=== PATIENT | female | born 1945 | race Caucasian/White ===

== ENCOUNTER → 2016-09-15 | Outpatient (CLI) | payer MEDICARE, BC ==
--- NOTE | 2016-09-15 17:20 | MR ---
EXAMINATION TYPE: MR lumbar spine wo con DATE OF EXAM: 09/15/2016 9:51 AM COMPARISON: 01/12/2016 HISTORY: 71-year-old female with low back pain, bilateral lower extremity radiculopathy, history of 3 surgeries, most recently in 2016. TECHNIQUE: Multiplanar, multisequence images of the lumbar spine were acquired. FINDINGS: There are postsurgical changes of L3-S1 posterior fusion with corresponding laminectomies. There is stable grade 1 anterolisthesis at the fused L4-L5 and L5-S1 levels. Intervertebral discs are degenerated, desiccated, narrowed, and diffusely bulging. As compared to 01/12/2016, fusion has been extended upward to include L3 and L4. There is extensive scar tissue formation along the posterior soft tissues with a 3.8 cm AP by 5.3 cm craniocaudal by 1.6 cm wide fluid collection along the posterior midline within the subcutaneous fat extending down to the superficial fascia. Possible cholelithiasis, axial T2 image 43 Vertebral body heights are preserved. At T12-L1, there is mild diffuse disc bulge without significant canal or foraminal stenosis. At L1-L2, there is mild diffuse disc bulge impressing on the ventral thecal sac but not causing signi ficant spinal canal stenosis. Changes result in minimal bilateral neuroforaminal narrowing. Not signi ficantly changed. At L2-L3, the new level above the fusion, there is diffuse disc bulge with a right intraforaminal com ponent. There is mild impression on the ventral thecal sac without significant spinal canal stenosis. Intraforaminal protrusion appears increased now with moderate right neuroforaminal stenosis and poss ible abutment of the exiting right L2 nerve root. At L3-L4, mild diffuse disc bulge with dorsal decompression of the thecal sac. There appears to be si milar mild to moderate right and mild left neuroforaminal stenosis. At L4-L5, is disc bulge with grade 1 anterolisthesis and dorsal decompression of the thecal sac. Ther e appears to be similar moderate right and [id number] left neuroforaminal stenosis. At L5-S1, there is grade 1 anterolisthesis with dorsal decompression of the thecal sac and diffuse di sc bulge. Unable to clearly evaluate the neuroforamina due to hardware artifact. Conus medullaris is normal. IMPRESSION: 1. The previous right-sided L5-S1 posterior lumbar fusion has been extended to include both sides now up to the L3 level with corresponding laminectomies. 2. There is a 5.3 cm fluid collection posteriorly in the subcutaneous fat extending down to the super ficial fascia that could represent a postoperative seroma. Other fluid collection including an absces s is not excluded and clinical correlation is recommended 3. At L2-L3, a right intraforaminal disc protrusion appears increased and this may impinge the exitin g right L2 nerve root. 4. Mild impression on the thecal sac at L2-L3 but no significant spinal canal stenosis. 5. Similar variable mild and moderate neuroforaminal stenoses in the mid and lower lumbar spine. 6. The L5-S1 neuroforamina are not adequately assessed due to metal artifact. Unable to exclude signi ficant neuroforaminal narrowing at this level.
== END | disposition home or self-care (01) ==
LOC: RADMRIMAIN 08:39
DX: M51.26 Other intervertebral disc displacement, lumbar region (principal); M99.73 Connective tissue and disc stenosis of intervertebral foramina of lumbar region; Z98.1 Arthrodesis status; Z98.890 Other specified postprocedural states
CPT/HCPCS: 72148

== ENCOUNTER → 2016-11-12 | Outpatient (CLI) | payer MEDICARE, BC ==
--- NOTE | 2016-11-12 19:32 | US ---
EXAMINATION TYPE: US venous doppler duplex LE LT DATE OF EXAM: 11/12/2016 7:01 PM COMPARISON: NONE CLINICAL HISTORY: Abnormal Coagulation Profile, D Dimer R79.1. Left leg pain SIDE PERFORMED: Left TECHNIQUE: The lower extremity deep venous system is examined utilizing real time linear array sonog gin with graded compression, doppler sonography and color-flow sonography. VESSELS IMAGED: External Iliac Vein (EIV) Common Femoral Vein Deep Femoral Vein Greater Saphenous Vein * Femoral Vein Popliteal Vein Small Saphenous Vein * Proximal Calf Veins (* superficial vessels) Left Leg: Negative for DVT IMPRESSION: Normal exam. No evidence of deep venous thrombosis in the left leg.
== END ==
LOC: RADUSMAIN 17:41
PROVIDERS: ATTEND Family Medicine
DX: R79.1 Abnormal coagulation profile (principal)
CPT/HCPCS: 36415; 85379

== ENCOUNTER → 2016-11-12 | Outpatient (CLI) | payer MEDICARE, BC | END | disposition home or self-care (01) | LOC: LABWHC1 16:05 | PROVIDERS: ATTEND Family Medicine | DX: R60.0 Localized edema (principal) | CPT/HCPCS: 36415; 85379 ==

== ENCOUNTER → 2017-03-22 | Outpatient (CLI) | payer MEDICARE, BC ==
--- NOTE | 2017-03-22 23:24 | MR ---
EXAMINATION TYPE: MR thoracic spine wo con DATE OF EXAM: 03/22/2017 COMPARISON: 01/12/2016 HISTORY: tspine pain Standard multiplanar, multisequence MRI departmental protocol Multiplanar, multisequence images of the thoracic spine were acquired. FINDINGS: Thoracic vertebra have fairly normal alignment. There is mild decreased signal and narrowin g of the thoracic disc spaces. There are moderate posterior spurs at C5-6 C6-7 with slight encroachme nt on the spinal canal. There is developmentally adequate spinal canal throughout most of the thoraci c spine. At T9-10 there is a small focus of increased signal within the posterior aspect of the thoracic spina l cord. I see no discrete mass. There is narrowing of the spinal canal at T10-11 with significant hyp ertrophic facet arthropathy and posterior endplate spur formation. There is resultant spinal stenosis . There is no compression fracture. There is no sign of thoracic paraspinal mass. I see no focal bone destruction. IMPRESSION: Mild spondylotic changes. There is posterior endplate spur formation and small disc herniation with f acet arthropathy at T10-11. There is resultant T10-11 bony spinal stenosis that show slight progressi on compared to old exam. There is focal increased signal in the cord at T9-10 that is unchanged and c onsistent with myelopathy. I see no underlying mass. Spondylosis in the cervical spine at C5-6 C6-7 without any significant spinal stenosis. Small posteri or disc bulging present at several levels of the midthoracic spine without encroachment on the spinal canal.
== END | disposition home or self-care (01) ==
LOC: RADMRIMAIN 17:29
PROVIDERS: ATTEND Pain Medicine Interventional Pain Medicine
DX: M48.04 Spinal stenosis, thoracic region (principal); M51.24 Other intervertebral disc displacement, thoracic region; M47.814 Spondylosis without myelopathy or radiculopathy, thoracic region; M46.84 Other specified inflammatory spondylopathies, thoracic region; M46.04 Spinal enthesopathy, thoracic region
CPT/HCPCS: 72146

== ENCOUNTER → 2017-05-03 | Outpatient (CLI) | payer MEDICARE, BC ==
--- NOTE | 2017-05-07 08:36 | MM ---
Reason for exam: screening (asymptomatic). Last mammogram was performed 1 year and 10 months ago. History: Patient is postmenopausal. Family history of breast cancer in maternal aunt at age 60. Took estrogen for 19 years beginning at age 42. Physical Findings: A clinical breast exam by your physician is recommended on an annual basis and results should be correlated with mammographic findings. MG 3D Screening Mammo W/Cad Bilateral CC and MLO view(s) were taken. Prior study comparison: June 28, 2015, bilateral MG 3d diag mammo w/cad JESSICA. May 25, 2014, bilateral MG screening mammo w CAD. The breast tissue is almost entirely fat. There is chronic nodularity in the right breast. No significant changes when compared with prior studies. ASSESSMENT: Negative, BI-RAD 1 RECOMMENDATION: Routine screening mammogram of both breasts in 1 year.
== END | disposition home or self-care (01) ==
LOC: RADMAMWWP 13:10
PROVIDERS: ATTEND Family Medicine
DX: Z12.31 Encounter for screening mammogram for malignant neoplasm of breast (principal)
CPT/HCPCS: 77063; G0202

== ENCOUNTER → 2017-06-27 | Outpatient (CLI) | payer MEDICARE, BC ==
--- NOTE | 2017-06-27 15:49 | MR ---
EXAMINATION TYPE: MR cervical spine wo con DATE OF EXAM: 06/27/2017 3:16 PM COMPARISON: NONE HISTORY: Neck pain Multiplanar MultiSpin echo imaging of the cervical spine was performed. Comparison: none C2-C3: No evidence for degenerative disc disease. No disc bulge/herniation or protrusion. No Canal stenosis. Foramina are patent bilaterally. C3-C4: No evidence for degenerative disc disease. No disc bulge/herniation or protrusion. No Canal stenosis. Foramina are patent bilaterally. C4-C5: No evidence for degenerative disc disease. No disc bulge/herniation or protrusion. No Canal stenosis. Foramina are patent bilaterally. C5-C6: Mild decreased signal and loss of height compatible disc desiccation. Mild posterior disc bulg e without herniation protrusion or central stenosis. Mild effacement ventral thecal sac. No evidence for cord contact. Bilateral foramina are patent. C6-C7: Moderate disc desiccation. Posterior disc bulge with encapsulating spur resulting in disc endp late complex. Mild effacement ventral thecal sac. No evidence for cord contact or central stenosis. M ild bilateral foraminal encroachment right greater than left. Ventral spondylosis. C7-T1: No evidence for degenerative disc disease. No disc bulge/herniation or protrusion. No Canal stenosis. Foramina are patent bilaterally. Cervical segments are intact. There is normal alignment. Cervical spinal cord is of normal signal. Craniovertebral junction relationships are within normal limits. IMPRESSION: 1. Degenerative disc disease at C5-6 and C6-7 with associated disc bulging in disc endplate complex a s noted.
== END ==
LOC: RADMRIMAIN 14:25
PROVIDERS: ATTEND Neurological Surgery
DX: M50.222 Other cervical disc displacement at C5-C6 level (principal); M50.322 Other cervical disc degeneration at C5-C6 level
CPT/HCPCS: 72141

== ENCOUNTER → 2017-08-08 | Outpatient (CLI) | payer MEDICARE, BC ==
--- NOTE | 2017-08-08 15:17 | XR ---
Thoracic spine HISTORY: Lead placement 3 views of the thoracic spine. there are leads, thoracic cord stimulator present at the midthoracic spine level, midline, T6-7. Ther e is a scoliosis, convex right. One of the 2 leads present is somewhat more caudal than the first dmitry e with its tip at the T7 level. Multilevel thoracic spondylosis is noted. Thoracic vertebral bodies s how preserved height and alignment. Bone mineralization is decreased. The heart is enlarged. No evide nt paraspinal mass. IMPRESSION: Thoracic cord stimulator as described.
== END | disposition home or self-care (01) ==
LOC: RADXRMAIN 14:45
PROVIDERS: ATTEND Pain Medicine Interventional Pain Medicine
DX: T82.129A Displacement of unspecified cardiac electronic device, initial encounter (principal)
CPT/HCPCS: 72070

== ENCOUNTER → 2018-06-11 | Outpatient (CLI) | payer MEDICARE ==
[2018-06-11 09:03] LABS: Basophils % (A) 1 %; Eosinophils # (A) 0.2 k/uL (0-0.7); Eosinophils % (A) 2 %; HCT 44.1 % (34.0-46.0); HGB 13.8 gm/dL (11.4-16.0); Lymphocytes # (A) 1.5 k/uL (1.0-4.8); Lymphocytes % (A) 21 %; MCH 28.9 pg (25.0-35.0); MCHC 31.3 g/dL (31.0-37.0); MCV 92.3 fL (80.0-100.0); Mean Platelet Volume 6.7; Monocytes # (A) 0.5 k/uL (0-1.0); Monocytes % (A) 6 %; Neutrophils # (A) 4.8 k/uL (1.3-7.7); Neutrophils % (A) 66 %; Platelet Count 238 k/uL (150-450); RBC 4.78 m/uL (3.80-5.40); RDW 13.5 % (11.5-15.5); WBC 7.2 k/uL (3.8-10.6)
[2018-06-11 16:21] LABS: Albumin 4.1 g/dL (3.80-4.90); Albumin/Globulin Ratio 1.52 (1.20-2.10); Anion Gap 6.7 mmol/L (4.00-12.00); Calcium 9.1 mg/dL (8.7-10.3); Carbon Dioxide 25.3 mmol/L (21.6-31.8); Globulin 2.7 g/dL (1.6-3.3); LDL Cholesterol,Calculated 140.4 mg/dL (0.0-131.0); Potassium 4.3 mmol/L (3.5-5.5); Total Bilirubin 0.4 mg/dL (0.2-1.2); Total Protein 6.8 g/dL (6.2-8.2); VLDL Calculation 25.6 mg/dL (5.00-40.00)
[2018-06-11 16:28] LABS: T4, Free (Free Thyroxine) 1.2 ng/dL (0.80-1.80)
== END | disposition home or self-care (01) ==
LOC: LABWHC1 08:06
PROVIDERS: ATTEND Family Medicine
DX: E03.9 Hypothyroidism, unspecified (principal); E78.5 Hyperlipidemia, unspecified; Z11.59 Encounter for screening for other viral diseases
CPT/HCPCS: 36415; 80053; 80061; 82550; 84439; 84443; 85025; 86803

== ENCOUNTER → 2018-09-02 | Outpatient (CLI) | payer MEDICARE ==
[2018-09-02 15:53] LABS: Basophils % (A) 0 %; Eosinophils # (A) 0.2 k/uL (0-0.7); Eosinophils % (A) 3 %; HCT 44.9 % (34.0-46.0); HGB 14.3 gm/dL (11.4-16.0); Lymphocytes # (A) 1.7 k/uL (1.0-4.8); Lymphocytes % (A) 20 %; MCH 29.3 pg (25.0-35.0); MCHC 31.9 g/dL (31.0-37.0); MCV 91.6 fL (80.0-100.0); Mean Platelet Volume 7.8; Monocytes # (A) 0.5 k/uL (0-1.0); Monocytes % (A) 6 %; Neutrophils % (A) 69 %; Platelet Count 248 k/uL (150-450); RBC 4.89 m/uL (3.80-5.40); WBC 8.7 k/uL (3.8-10.6)
[2018-09-02 16:01] LABS: Appearance,Urine Clear (Clear); Bacteria,Urine Rare /hpf; Bilirubin,Urine Negative (Negative); Blood,Urine Negative (Negative); Color,Urine Light Yellow; Glucose,Urine (UA) Negative (Negative); Ketones,Urine 1+ (Negative); Leukocyte Esterase,Urine Small (Negative); Nitrite,Urine Negative (Negative); PH, Urine 5.5 (5.0-8.0); Protein,Urine Negative (Negative); RBC,Urine 1 /hpf (0-5); Specific Gravity,Urine 1.011 (1.001-1.035); Squamous Epithelial Cell,Urine <1 /hpf (0-4); Urobilinogen,Urine <2.0 mg/dL (<2.0); WBC,Urine 6 /hpf (0-5)
[2018-09-02 17:36] LABS: Erythrocyte Sedimentation Rate 16 mm/hr (0-20)
[2018-09-03 00:32] LABS: Cyclic Citrullinated Pep IgG NEGATIVE (NEGATIVE)
[2018-09-03 01:06] LABS: ALT 26 U/L (8-44); AST 30 U/L (13-35); Albumin/Globulin Ratio 1.52 (1.60-3.17); Alkaline Phosphatase 64 U/L (41-126); Bilirubin, Conjugated <0.20 mg/dL (0.20-0.40); C Reactive Protein <0.4 mg/dL (0.0-0.8); Calcium 9.5 mg/dL (8.7-10.3); Carbon Dioxide 22.6 mmol/L (21.6-31.8); Chloride 103 mmol/L (96-109); Creatine Kinase 102 U/L (26-186); Globulin 2.9 g/dL (1.6-3.3); Glucose 86 mg/dL (70-110); LDH 273 U/L (120-246); Phosphorus 2.4 mg/dL (2.4-5.1); Potassium 3.8 mmol/L (3.5-5.5); Sodium 137 mmol/L (135-145); Total Bilirubin 0.4 mg/dL (0.3-1.2); Total Protein 7.3 g/dL (6.2-8.2); Uric Acid 6.1 mg/dL (2.9-7.7)
[2018-09-03 01:23] LABS: Protein, Total 7.3 g/dL (6.2-8.2); Rheumatoid Factor 10 IU/mL (0-15); Streptolysin O Ab(ASO) 138 IU/mL (0-200)
[2018-09-03 01:32] LABS: Vitamin D 25 Hydroxy 30.3 ng/mL (30.0-100.0)
[2018-09-03 05:41] LABS: Hemoglobin A1C 5.8 % (4.0-6.0)
[2018-09-03 10:28] LABS: Albumin 4.07 g/dL (3.80-4.90); Gamma Globulin 1.36 g/dL (0.70-1.50)
[2018-09-03 12:39] LABS: HLA B27 NEGATIVE
[2018-09-03 14:08] LABS: Angiotensin-1 Converting Enz. 4 U/L (8-52)
[2018-09-03 14:34] LABS: Hepatits C Virus RNA Not detected (Not detected); Hepatits C Virus RNA, Quant <12 IU/mL (<12); LOG HCV IU/mL <1.08 (<1.08)
[2018-09-03 16:24] LABS: Vitamin D, 1, 25-Dihydroxy 37 pg/mL (20 - 79)
[2018-09-04 07:04] LABS: Vit B1(Thiamine) 68 ug/L (38-122)
[2018-09-05 09:54] LABS: Lyme IgG/IgM 0.1 Index
== END | disposition home or self-care (01) ==
LOC: LABWHC1 14:25
PROVIDERS: ATTEND Physical Medicine & Rehabilitation
DX: M51.16 Intervertebral disc disorders with radiculopathy, lumbar region (principal); M47.816 Spondylosis without myelopathy or radiculopathy, lumbar region; M54.5 Low back pain; R26.89 Other abnormalities of gait and mobility; G60.3 Idiopathic progressive neuropathy; M96.1 Postlaminectomy syndrome, not elsewhere classified; Z98.1 Arthrodesis status; Z68.41 Body mass index [BMI] 40.0-44.9, adult; M79.18 Myalgia, other site; M81.0 Age-related osteoporosis without current pathological fracture; Z86.2 Personal history of diseases of the blood and blood-forming organs and certain disorders involving the immune mechanism
CPT/HCPCS: 36415; 80053; 81001; 82164; 82248; 82306; 82310; 82550; 82553; 82607; 82652; 83036; 83516; 83520; 83615; 83970; 84100; 84165; 84207; 84425; 84550; 85025; 85652; 86038; 86060; 86140; 86200; 86235; 86431; 86618; 86780; 86812; 87522

== ENCOUNTER → 2020-02-01 | Outpatient (CLI) | payer MEDICARE ==
--- NOTE | 2020-02-02 10:10 | MM ---
Reason for exam: screening (asymptomatic). Last mammogram was performed 2 years and 9 months ago. History: Patient is postmenopausal. Family history of breast cancer in maternal aunt at age 60. Took estrogen for 19 years beginning at age 42. Physical Findings: A clinical breast exam by your physician is recommended on an annual basis and results should be correlated with mammographic findings. MG 3D Screening Mammo W/Cad Bilateral CC and MLO view(s) were taken. Prior study comparison: May 03, 2017, bilateral MG 3d screening mammo w/cad. June 28, 2015, bilateral MG 3d diag mammo w/cad JESSICA. There are scattered fibroglandular densities. Stable benign calcifications. There is no discrete abnormality. No significant changes when compared with prior studies. ASSESSMENT: Benign, BI-RAD 2 RECOMMENDATION: Routine screening mammogram of both breasts in 1 year.
== END | disposition home or self-care (01) ==
LOC: RADMAMWWP 07:58
PROVIDERS: ATTEND Family Medicine
DX: Z12.31 Encounter for screening mammogram for malignant neoplasm of breast (principal)
CPT/HCPCS: 77063; 77067

== ENCOUNTER 2020-06-18 09:26 | Inpatient (IN) | payer MEDICARE ==
[2020-06-18] MEDS ORDERED: ACETAMINOPHEN TAB 500 MG TAB PO STA (09:45)
[2020-06-18] MEDS ORDERED: ONDANSETRON 4 MG/2 ML VIAL IVP STA (09:46)
[2020-06-18] MEDS ORDERED: SODIUM CHLORIDE 0.9% 1,000 ML IV STA (09:46)
[2020-06-18] MEDS ORDERED: IBUPROFEN 600 MG TAB PO STA (09:46)
[2020-06-18 10:17] LABS: Basophils # (A) 0.2 k/uL (0-0.2); Basophils % (A) 2 %; Eosinophils # (A) 0.1 k/uL (0-0.7); Eosinophils % (A) 1 %; HCT 41.1 % (34.0-46.0); HGB 14.1 gm/dL (11.4-16.0); Lymphocytes # (A) 0.7 k/uL (1.0-4.8); Lymphocytes % (A) 9 %; MCHC 34.3 g/dL (31.0-37.0); MCV 87.5 fL (80.0-100.0); Mean Platelet Volume 7.6; Monocytes # (A) 0.6 k/uL (0-1.0); Monocytes % (A) 9 %; Neutrophils # (A) 5.6 k/uL (1.3-7.7); Neutrophils % (A) 77 %; Platelet Count 169 k/uL (150-450); RDW 12.6 % (11.5-15.5); WBC 7.3 k/uL (3.8-10.6)
--- NOTE | 2020-06-18 10:23 | ED ---
General Adult HPI - General Chief complaint: Recheck/Abnormal Lab/Rx Stated complaint: Covid + Time Seen by Provider: 06/18/20 09:30 Source: patient, RN notes reviewed, old records reviewed Mode of arrival: wheelchair Limitations: no limitations - History of Present Illness Initial comments: This is a 75-year-old female presents to the emergency department stating that she was tested positive for cold on Saturday. Patient states that since she's not been able to eat or drink much and she is somewhat short of breath as well. Patient also complains he said diarrhea every day. Patient also states she's lost her sense of smell and taste. Patient denies any shortness of breath per patient denies any fever lately. Patient does complain of some body aches. Patient denies any abdominal pain but states she has been vomiting and she states last time she vomited was an hour and half ago. She denies any swelling to legs or calf tenderness. - Related Data Allergies Allergy/AdvReac Type Severity Reaction Status Date / Time Penicillins Allergy Unknown Verified 06/18/20 09:33 Sulfa (Sulfonamide Allergy Unknown Verified 06/18/20 09:33 Antibiotics) Review of Systems ROS Statement: Those systems with pertinent positive or pertinent negative responses have been documented in the HPI. ROS Other: All systems not noted in ROS Statement are negative. Past Medical History Past Medical History: Hypertension Additional Past Medical History / Comment(s): chronic back pain History of Any Multi-Drug Resistant Organisms: None Reported Past Surgical History: Back Surgery Past Psychological History: No Psychological Hx Reported Smoking Status: Former smoker Past Alcohol Use History: None Reported Past Drug Use History: None Reported General Exam - General Exam Comments Initial Comments: GENERAL: Patient is well-developed and well-nourished. Patient is nontoxic and well- hydrated and is in mild distress. ENT: Neck is soft and supple. No significant lymphadenopathy is noted. Oropharynx is clear. Moist mucous membranes. Neck has full range of motion without eliciting any pain. EYES: The sclera were anicteric and conjunctiva were pink and moist. Extraocular movements were intact and pupils were equal round and reactive to light. Eyelids were unremarkable. PULMONARY: Unlabored respirations. Good breath sounds bilaterally. No audible rales rhonchi or wheezing was noted. CARDIOVASCULAR: There is a regular rate and rhythm without any murmurs gallops or rubs. ABDOMEN: Soft and nontender with normal bowel sounds. SKIN: Skin is clear with no lesions or rashes and otherwise unremarkable. NEUROLOGIC: Patient is alert and oriented x3. Cranial nerves II through XII are grossly intact. Motor and sensory are also intact. Normal speech, volume and content. Symmetrical smile. MUSCULOSKELETAL: Normal extremities with adequate strength and full range of motion. LYMPHATICS: No significant lymphadenopathy is noted PSYCHIATRIC: Normal psychiatric evaluation. Limitations: no limitations Course Vital Signs 06/18/20 06/18/20 09:29 09:46 Temperature 98.3 F 99.9 F H Pulse Rate 104 H Respiratory 18 Rate Blood Pressure 164/83 O2 Sat by Pulse 97 Oximetry Medical Decision Making - Medical Decision Making EKG shows normal sinus rhythm 89 bpm MO interval is 114 QRS is 68 QT interval 360 QTC is 447. Chest x-ray showed: Pneumonia. Computed tomography scan showed no PE but did show extensive groundglass infiltrates. This is consistent with Coban pneumonia. I spoke with the patient and she wanted to be admitted. I started the patient on Decadron. I consulted pulmonary and I spoke with Dr. Clark he agreed to admit the patient I wrote admitting orders. - Lab Data Result diagrams: 06/18/20 10:09 06/18/20 10:09 Lab Results 06/18/20 06/18/20 06/18/20 Range/Units 10:09 10:09 10:09 WBC 7.3 (3.8-10.6) k/uL RBC 4.70 (3.80-5.40) m/uL Hgb 14.1 (11.4-16.0) gm/dL Hct 41.1 (34.0-46.0) % MCV 87.5 (80.0-100.0) fL MCH 30.0 (25.0-35.0) pg MCHC 34.3 (31.0-37.0) g/dL RDW 12.6 (11.5-15.5) % Plt Count 169 (150-450) k/uL MPV 7.6 Neutrophils % 77 % Lymphocytes % 9 % Monocytes % 9 % Eosinophils % 1 % Basophils % 2 % Neutrophils # 5.6 (1.3-7.7) k/uL Lymphocytes # 0.7 L (1.0-4.8) k/uL Monocytes # 0.6 (0-1.0) k/uL Eosinophils # 0.1 (0-0.7) k/uL Basophils # 0.2 (0-0.2) k/uL PT 10.4 (9.0-12.0) sec INR 1.0 (<1.2) APTT 26.0 (22.0-30.0) sec D-Dimer 1.31 H (<0.60) mg/L FEU Sodium 138 (137-145) mmol/L Potassium 3.9 (3.5-5.1) mmol/L Chloride 108 H (98-107) mmol/L Carbon Dioxide 21 L (22-30) mmol/L Anion Gap 9 mmol/L BUN 13 (7-17) mg/dL Creatinine 0.61 (0.52-1.04) mg/dL Est GFR (CKD-EPI)AfAm >90 (>60 ml/min/1.73 sqM) Est GFR (CKD-EPI)NonAf >90 (>60 ml/min/1.73 sqM) Glucose 130 H (74-99) mg/dL Plasma Lactic Acid Bucky (0.7-2.0) mmol/L Calcium 8.9 (8.4-10.2) mg/dL Magnesium 1.7 (1.6-2.3) mg/dL Total Bilirubin 0.7 (0.2-1.3) mg/dL AST 53 H (14-36) U/L ALT 26 (4-34) U/L Alkaline Phosphatase 87 (38-126) U/L Lactate Dehydrogenase 782 H (313-618) U/L C-Reactive Protein 35.0 H (<10.0) mg/L Total Protein 7.2 (6.3-8.2) g/dL Albumin 3.7 (3.5-5.0) g/dL Coronavirus (PCR) (Not Detectd) 06/18/20 06/18/20 Range/Units 10:09 10:10 WBC (3.8-10.6) k/uL RBC (3.80-5.40) m/uL Hgb (11.4-16.0) gm/dL Hct (34.0-46.0) % MCV (80.0-100.0) fL MCH (25.0-35.0) pg MCHC (31.0-37.0) g/dL RDW (11.5-15.5) % Plt Count (150-450) k/uL MPV Neutrophils % % Lymphocytes % % Monocytes % % Eosinophils % % Basophils % % Neutrophils # (1.3-7.7) k/uL Lymphocytes # (1.0-4.8) k/uL Monocytes # (0-1.0) k/uL Eosinophils # (0-0.7) k/uL Basophils # (0-0.2) k/uL PT (9.0-12.0) sec INR (<1.2) APTT (22.0-30.0) sec D-Dimer (<0.60) mg/L FEU Sodium (137-145) mmol/L Potassium (3.5-5.1) mmol/L Chloride (98-107) mmol/L Carbon Dioxide (22-30) mmol/L Anion Gap mmol/L BUN (7-17) mg/dL Creatinine (0.52-1.04) mg/dL Est GFR (CKD-EPI)AfAm (>60 ml/min/1.73 sqM) Est GFR (CKD-EPI)NonAf (>60 ml/min/1.73 sqM) Glucose (74-99) mg/dL Plasma Lactic Acid Bucky 1.3 (0.7-2.0) mmol/L Calcium (8.4-10.2) mg/dL Magnesium (1.6-2.3) mg/dL Total Bilirubin (0.2-1.3) mg/dL AST (14-36) U/L ALT (4-34) U/L Alkaline Phosphatase (38-126) U/L Lactate Dehydrogenase (313-618) U/L C-Reactive Protein (<10.0) mg/L Total Protein (6.3-8.2) g/dL Albumin (3.5-5.0) g/dL Coronavirus (PCR) Detected A (Not Detectd) Critical Care Time Critical Care Time: Yes Total Critical Care Time: 35 Disposition Clinical Impression: Pneumonia due to COVID-19 virus Disposition: ADMITTED IP TO THIS [facility] Referrals: Damian Sherman MD [Primary Care Provider] - 1-2 days Time of Disposition: 12:17
[2020-06-18 10:31] LABS: ALT 26 U/L (4-34); AST 53 U/L (14-36); African American GFR (CKD) >90 (>60 ml/min/1.73 sqM); Albumin 3.7 g/dL (3.5-5.0); Alkaline Phosphatase 87 U/L (38-126); Anion Gap 9 mmol/L; Blood Urea Nitrogen 13 mg/dL (7-17); Calcium 8.9 mg/dL (8.4-10.2); Carbon Dioxide 21 mmol/L (22-30); Chloride 108 mmol/L (98-107); Glucose 130 mg/dL (74-99); LDH 782 U/L (313-618); Magnesium 1.7 mg/dL (1.6-2.3); Non-African American GFR(CKD) >90 (>60 ml/min/1.73 sqM); Potassium 3.9 mmol/L (3.5-5.1); Sodium 138 mmol/L (137-145); Total Bilirubin 0.7 mg/dL (0.2-1.3); Total Protein 7.2 g/dL (6.3-8.2)
[2020-06-18 10:32] LABS: Prothrombin Time 10.4 sec (9.0-12.0)
--- NOTE | 2020-06-18 10:36 | XR ---
EXAMINATION TYPE: XR chest 1V portable DATE OF EXAM: 06/18/2020 COMPARISON: NONE HISTORY: Shortness of breath TECHNIQUE: Single frontal view of the chest is obtained. FINDINGS: There is no focal air space opacity, pleural effusion, or pneumothorax seen. The cardiac silhouette size is within normal limits. The osseous structures are intact. IMPRESSION: No acute process.
[2020-06-18 10:41] LABS: D-Dimer 1.31 mg/L FEU (<0.60)
[2020-06-18] MEDS ORDERED: HYDROmorphone 0.5 MG/0.5 ML SYRINGE IVP STA (11:02)
--- NOTE | 2020-06-18 11:44 | CT ---
EXAMINATION TYPE: CT chest angio for PE DATE OF EXAM: 06/18/2020 COMPARISON: None HISTORY: Elevated D dimer CT DLP: 448.6 mGycm Automated exposure control for dose reduction was used. CONTRAST: CT Chest for pulmonary embolism performed with with IV Contrast, patient injected with 100 mL of Isov ue 370. FINDINGS: LUNGS: There are bilateral groundglass infiltrates greater within the periphery of the lungs suggesti ve of pneumonitis or pneumonia. No pleural effusion or pneumothorax. No sizable pulmonary nodule. MEDIASTINUM: There is satisfactory enhancement of the pulmonary artery and its branches, there is no CT evidence for pulmonary embolism. There are no greater than 1 cm hilar or mediastinal lymph nodes. No pericardial effusion is seen. There appears to be artifact within the right anterior mediastin um. OTHER: Hypertrophic and degenerative change of the spine. Suggestion of a stimulator device posterio r to the thoracic spine. Bilateral nodularity adrenal glands are nonspecific. IMPRESSION: 1. Bilateral diffuse groundglass changes compatible with pneumonia or pneumonitis including covid pne umonia. 2. No diagnostic evidence of pulmonary embolism.
[2020-06-18] MEDS ORDERED: dexAMETHasone 2 MG TAB PO STA (12:07)
[2020-06-18] MEDS: PREGABALIN 100 MG CAP PO SCH ×2 (15:28→21:00)
[2020-06-18] MEDS: atenoloL 25 MG TAB PO SCH (15:28)
[2020-06-18] MEDS: FAMOTIDINE 20 MG TAB PO SCH (15:28)
[2020-06-18] MEDS: lisinopriL 20 MG TAB PO SCH (17:37)
[2020-06-18 18:15] LABS: Ferritin 267.1 ng/mL (10.0-291.0)
[2020-06-18] MEDS ORDERED: tiZANidine 4 MG TAB PO SCH (21:00)
[2020-06-18] MEDS ORDERED: ASPIRIN 81 MG PO SCH (21:00)
[2020-06-19 04:19] VITALS: RESP 16
[2020-06-19] MEDS ORDERED: LEVOTHYROXINE 75 MCG TAB PO SCH (06:30)
[2020-06-19] MEDS ORDERED: dexAMETHasone 2 MG TAB PO SCH (09:00)
[2020-06-19] MEDS: PREGABALIN 100 MG CAP PO SCH (09:21)
[2020-06-19] MEDS: FAMOTIDINE 20 MG TAB PO SCH (09:21)
[2020-06-19] MEDS: atenoloL 25 MG TAB PO SCH (09:21)
[2020-06-19] MEDS: lisinopriL 20 MG TAB PO SCH (11:19)
[2020-06-19 11:56] VITALS: BP 105/66; PULSE 73; TEMP 97.9
--- NOTE | 2020-06-19 12:38 | P.CNPUL ---
History of Present Illness Consult date: 06/19/20 Requesting physician: Fransico Clark Reason for consult: dyspnea Chief complaint: Poor appetite, shortness of breath History of present illness: This is a very pleasant 75-year-old female patient with a known history of hypertension, chronic back pain with multiple reveals back surgeries, former smoker. She presented to the emergency room yesterday with complaints of ongoing issues with poor appetite, poor oral intake, muscle aches, shortness of breath. Her symptoms started approximately 10 days ago. She tested positive for CoVID 19 on 06/13/2020. Her and son are also positive. Chest x-ray reveals no acute pulmonary process. CT angiogram ruled out pulmonary embolism. There is bilateral diffuse groundglass changes compatible with pneumonitis secondary to CoVID 19. White count 7.3. Hemoglobin 14.1. Lymphocytes 0.7. D- dimer 1.31. Sodium 138. Potassium 3.9. Creatinine 0.61. Pro-calcitonin 0.05. LDH 782. C-reactive protein 35. She is seen today in consultation on the regular medical floor. She is currently sitting up in a chair at the bedside. Awake and alert in no acute distress. Feeling quite a bit better today compared to yesterday. Tolerating a diet. Maintaining good O2 saturations in the mid 90s on room air. She's been afebrile. Hemodynamically stable. She's been initiated on dexamethasone. Review of Systems REVIEW OF SYSTEMS: CONSTITUTIONAL: Weakness, poor appetite. Denies any recent significant weight loss or weight gain. EYES: Denies change in vision. EARS, NOSE, MOUTH, THROAT: Denies headaches, denies sore throat. CARDIOVASCULAR: Denies chest pain, palpitations or syncopal episodes. RESPIRATORY: Positive for shortness of breath, cough, congestion no hemoptysis. GASTROINTESTINAL: Denies change in appetite, denies abdominal pain GENITOURINARY: Denies hematuria, denies infections. MUSKULOSKELETAL: Denies pain, denies swelling. INTEGUMENTARY: Denies rash, denies eczema. NEUROLOGICAL: Denies recent memory loss, no recent seizure activity. PSYCHIATRIC: Denies anxiety, denies depression. HEMATOLOGIC/LYMPHATIC: Denies anemia, denies enlarged lymph nodes. Past Medical History Past Medical History: Hypertension, Osteoarthritis (OA) Additional Past Medical History / Comment(s): chronic back pain, Hashimotos Thyroiditis History of Any Multi-Drug Resistant Organisms: None Reported Past Surgical History: Back Surgery Smoking Status: Former smoker - Past Family History Mother Family Medical History: No Reported History Medications and Allergies Home Medications Medication Instructions Recorded Confirmed Type Aspirin EC [Ecotrin Low Dose] 81 mg PO HS 06/18/20 06/18/20 History Famotidine [Pepcid] 40 mg PO DAILY 06/18/20 06/18/20 History Fexofenadine HCl [Maura Allergy] 180 mg PO HS 06/18/20 06/18/20 History Furosemide [Lasix] 20 mg PO DAILY 06/18/20 06/18/20 History Levothyroxine Sodium [Synthroid] 75 mcg PO DAILY 06/18/20 06/18/20 History Pregabalin [Lyrica] 100 mg PO TID 06/18/20 06/18/20 History atenoloL [Atenolol] 25 mg PO DAILY 06/18/20 06/18/20 History ramipriL [Ramipril] 10 mg PO BID 06/18/20 06/18/20 History tiZANidine HCL [Zanaflex] 2 mg PO HS 06/18/20 06/18/20 History Allergies Allergy/AdvReac Type Severity Reaction Status Date / Time Penicillins Allergy Unknown Verified 06/18/20 12:44 Sulfa (Sulfonamide Allergy Unknown Verified 06/18/20 12:44 Antibiotics) Physical Exam Vitals: Vital Signs Temp Pulse Pulse Resp BP BP Pulse Ox 06/19/20 11:00 97.9 F 73 16 105/66 95 06/19/20 10:50 105/69 06/19/20 09:18 69 110/71 06/19/20 05:21 103/70 06/19/20 04:18 97.4 F L 71 16 90/59 96 06/18/20 21:10 98 F 70 18 116/73 96 06/18/20 20:05 18 06/18/20 19:42 112/72 06/18/20 17:26 97.9 F 71 17 159/103 96 06/18/20 13:56 158/95 06/18/20 13:51 97.3 F L 72 17 168/102 95 06/18/20 13:02 98.9 F 92 18 126/76 98 Intake and Output 06/18/20 06/19/20 06/19/20 22:59 06:59 14:59 Intake Total 600 Balance 600 Intake: Oral 600 Other: Voiding Method Toilet Toilet # Voids 1 1 GENERAL EXAM: Alert, active, very pleasant 75-year-old female patient, on room air, comfortable in no apparent distress. HEAD: Normocephalic. EYES: Normal reaction of pupils, equal size. NOSE: Clear with pink turbinates. THROAT: No erythema or exudates. NECK: No masses, no JVD. CHEST: No chest wall deformity. LUNGS: Equal air entry with few scattered crackles in the bases. CVS: S1 and S2 normal with no audible murmur, regular rhythm. ABDOMEN: No hepatosplenomegaly, normal bowel sounds, no guarding or rigidity. SPINE: No scoliosis or deformity SKIN: No rashes CENTRAL NERVOUS SYSTEM: No focal deficits, tone is normal in all 4 extremities. EXTREMITIES: There is no peripheral edema. No clubbing, no cyanosis. Peripheral pulses are intact. Results - Laboratory Findings CBC and BMP: 06/18/20 10:09 06/18/20 10:09 PT/INR, D-dimer PT 10.4 sec (9.0-12.0) 06/18/20 10:09 INR 1.0 (<1.2) 06/18/20 10:09 D-Dimer 1.31 mg/L FEU (<0.60) H 06/18/20 10:09 Abnormal lab findings: Abnormal Labs 06/18/20 06/18/20 06/18/20 10:09 10:09 10:09 Lymphocytes # 0.7 L D-Dimer 1.31 H Chloride 108 H Carbon Dioxide 21 L Glucose 130 H AST 53 H Lactate Dehydrogenase 782 H C-Reactive Protein 35.0 H Coronavirus (PCR) 06/18/20 10:10 Lymphocytes # D-Dimer Chloride Carbon Dioxide Glucose AST Lactate Dehydrogenase C-Reactive Protein Coronavirus (PCR) Detected A - Diagnostic Findings Chest x-ray: image reviewed CT scan - chest: image reviewed Assessment and Plan Assessment: 1 Generalized weakness, fatigue, poor appetite secondary to acute CoVID 19 infection 2 Dyspnea secondary to above, on room air 3 Hypothyroidism 4 Hypertension 5 Chronic back pain with multiple previous surgeries Plan: The patient was seen and evaluated by Dr. Kadi Chest x-ray, CAT scan of labs reviewed She is currently on room air and anxious to go home Continue dexamethasone 10 days Follow up closely with her PCP Home once cleared medically I, the cosigning physician, performed a history & physical examination of the patient. Lungs sounds faint basilar crackles. Maintaining good O2 saturations in the 90s on room air. I discussed the assessment and plan of care with my nurse practitioner, Temi Cody. I attest to the above consultation as dictated by her. Time with Patient: Greater than 30
--- NOTE | 2020-06-19 23:15 | P.HPIM ---
History of Present Illness H&P Date: 06/19/20 Chief Complaint: Loss of taste and smell. History of presenting complaint: This is a very pleasant 72. Patient of Dr. Damian Sherman. Chronic stable medical conditions include hypertension, hypothyroid, chronic low back pain and this had multiple surgeries. Patient's has been diagnosed with COVID and also her [place] Patient was diagnosed with COVID on Saturday. Patient for 1 days loss of taste and smell. No fever no chills. Had some achiness in the muscles. No headache. Slight diarrhea. Presented to the ER. No hypoxia. Review of systems: GEN.: None EYES: None HEENT: As above NECK: None RESPIRATORY: None CARDIOVASCULAR: None GASTROINTESTINAL: None GENITOURINARY: As above MUSCULOSKELETAL: None LYMPHATICS: None HEMATOLOGICAL: None PSYCHIATRY: None NEUROLOGICAL: None Past medical history to include: Hypertension, hypothyroid, chronic low back pain with multiple surgeries, Gus's thyroiditis Social history: Does not smoke or drink alcohol. . Family history: Reviewed, noncontributory to presentation Physical examination: VITAL SIGNS: 98.3, 104, 18, 164/83, 97% room air-upon presentation GENERAL: [BMI 38.8, sitting up, comfortable. EYES: Pupils equal. Conjunctiva normal. HEENT: External appearance of nose and ears normal, oral cavity grossly normal. NECK: JVD not raised; masses not palpable. HEART: First and second heart sounds are normal; no edema. LUNGS: Respiratory rate normal; clear to auscultation. ABDOMEN: Soft, nontender, liver spleen not palpable, no masses palpable. PSYCH: Alert and oriented x3; mood and affect normal. NEUROLOGICAL: Cranial nerves grossly intact; no facial asymmetry, power and sensation grossly intact. LYMPHATICS: No lymph nodes palpable in the axilla and neck INVESTIGATIONS, reviewed in the clinical context: White count 7.3 hemoglobin 14.1 decreased lymphocytes 0.7 D-dimer 1.31 potassium 3.9 creatinine 0.61 CRP 35 Pro-calcitonin 0.05 Coronavirus [PCR] detected EKG tracing personally reviewed by me-normal sinus rhythm Computed tomography scan of the chest-bilateral diffuse groundglass changes Chest x-ray film personally reviewed by me-some infiltrates Assessment: -COVID 19 pneumonia, mild with a good pulse ox -Hypothyroid -Essential hypertension -Primary low back pain with multiple surgeries -Obesity BMI 38.8 Plan: Home medications resumed. Patient started on supplements including vitamin C vitamin D absent. Pulmonary did recommend dexamethasone hence is being given. Otherwise patient's pulse ox is rather good. This was discussed with the patient. Past Medical History Past Medical History: Hypertension, Osteoarthritis (OA) Additional Past Medical History / Comment(s): chronic back pain, Hashimotos Thyroiditis History of Any Multi-Drug Resistant Organisms: None Reported Past Surgical History: Back Surgery Smoking Status: Former smoker - Past Family History Mother Family Medical History: No Reported History Medications and Allergies Home Medications Medication Instructions Recorded Confirmed Type Aspirin EC [Ecotrin Low Dose] 81 mg PO HS 06/18/20 06/18/20 History Famotidine [Pepcid] 40 mg PO DAILY 06/18/20 06/18/20 History Fexofenadine HCl [Maura Allergy] 180 mg PO HS 06/18/20 06/18/20 History Furosemide [Lasix] 20 mg PO DAILY 06/18/20 06/18/20 History Levothyroxine Sodium [Synthroid] 75 mcg PO DAILY 06/18/20 06/18/20 History Pregabalin [Lyrica] 100 mg PO TID 06/18/20 06/18/20 History atenoloL [Atenolol] 25 mg PO DAILY 06/18/20 06/18/20 History ramipriL [Ramipril] 10 mg PO BID 06/18/20 06/18/20 History tiZANidine HCL [Zanaflex] 2 mg PO HS 06/18/20 06/18/20 History Ascorbic Acid [Vitamin C] 500 mg PO DAILY #30 tab.chew 06/19/20 Rx Cholecalciferol [Vitamin D3] 400 unit PO DAILY@1200 #30 tablet 06/19/20 Rx Famotidine [Pepcid] 20 mg PO BID #60 tablet 06/19/20 Rx dexAMETHasone [Hexadrol] 6 mg PO DAILY #21 tab 06/19/20 Rx Allergies Allergy/AdvReac Type Severity Reaction Status Date / Time Penicillins Allergy Unknown Verified 06/18/20 12:44 Sulfa (Sulfonamide Allergy Unknown Verified 06/18/20 12:44 Antibiotics) Physical Exam Vitals: Vital Signs Temp Pulse Pulse Resp BP BP Pulse Ox 06/19/20 11:00 97.9 F 73 16 105/66 95 06/19/20 10:50 105/69 06/19/20 09:18 69 110/71 06/19/20 05:21 103/70 06/19/20 04:18 97.4 F L 71 16 90/59 96 06/18/20 21:10 98 F 70 18 116/73 96 06/18/20 20:05 18 06/18/20 19:42 112/72 06/18/20 17:26 97.9 F 71 17 159/103 96 06/18/20 13:56 158/95 06/18/20 13:51 97.3 F L 72 17 168/102 95 06/18/20 13:02 98.9 F 92 18 126/76 98 Intake and Output 06/18/20 06/19/20 06/19/20 22:59 06:59 14:59 Intake Total 600 Balance 600 Intake: Oral 600 Other: Voiding Method Toilet Toilet # Voids 1 1 Results CBC & Chem 7: 06/18/20 10:09 06/18/20 10:09 Thrombosis Risk Factor Assmnt - Choose All That Apply Any of the Below Risk Factors Present?: Yes Each Factor Represents 1 point: Swollen legs (current) Each Risk Factor Represents 2 Points: Age 61-74 years Each Risk Factor Represents 3 Points: Positive Factor V Leiden Thrombosis Risk Factor Assessment Total Risk Factor Score: 6 Thrombosis Risk Factor Assessment Level: High Risk
--- NOTE | 2020-06-19 23:20 | P.DS ---
Providers Date of admission: 06/18/20 12:18 Expected date of discharge: 06/19/20 Attending physician: Fransico Clark Consults: 06/18/20 12:18 Consult Physician Urgent Consulting Provider: Santiago Wallis Consult Reason/Comments: COVID pneumonia Do you want consulting provider notified?: Yes Primary care physician: Damian Sherman [facility] Course: Chief Complaint: Loss of taste and smell. History of presenting complaint: This is a very pleasant 72. Patient of Dr[address] Damian Sherman. Chronic stable medical conditions include hypertension, hypothyroid, chronic low back pain and this had multiple surgeries. Patient's has been diagnosed with COVID and also her [place] who [place] Patient was diagnosed with COVID on Saturday. Patient for 1 days loss of taste and smell. No fever no chills. Had some achiness in the muscles. No headache. Slight diarrhea. Presented to the ER. No hypoxia. Patient is a good pulse ox. No real indication for steroids. Seen by pulmonary. We'll felt he may benefit from steroids. Discussed with the patient. Patient stable for discharge. Quarantine instructions given. To return if symptoms were to get worse. Consultation: Dr. Wallis from pulmonary Past medical history to include: Hypertension, hypothyroid, chronic low back pain with multiple surgeries, Gus's thyroiditis Social history: Does not smoke or drink alcohol. . Family history: Reviewed, noncontributory to presentation Physical examination: VITAL SIGNS: 98.3, 104, 18, 164/83, 97% room air-upon presentation GENERAL: [BMI 38.8, sitting up, comfortable. EYES: Pupils equal. Conjunctiva normal. HEENT: External appearance of nose and ears normal, oral cavity grossly normal. NECK: JVD not raised; masses not palpable. HEART: First and second heart sounds are normal; no edema. LUNGS: Respiratory rate normal; clear to auscultation. ABDOMEN: Soft, nontender, liver spleen not palpable, no masses palpable. PSYCH: Alert and oriented x3; mood and affect normal. NEUROLOGICAL: Cranial nerves grossly intact; no facial asymmetry, power and sensation grossly intact. LYMPHATICS: No lymph nodes palpable in the axilla and neck INVESTIGATIONS, reviewed in the clinical context: White count 7.3 hemoglobin 14.1 decreased lymphocytes 0.7 D-dimer 1.31 potassium 3.9 creatinine 0.61 CRP 35 Pro-calcitonin 0.05 Coronavirus [PCR] detected EKG tracing personally reviewed by me-normal sinus rhythm Computed tomography scan of the chest-bilateral diffuse groundglass changes Chest x-ray film personally reviewed by me-some infiltrates Assessment: -COVID 19 pneumonia, mild with a good pulse ox -Anosmia, [place] secondary to COVID 19 -Hypothyroid -Essential hypertension -Primary low back pain with multiple surgeries -Obesity BMI 38.8 Disposition: Home Patient Condition at Discharge: Stable Plan - Discharge Summary New Discharge Prescriptions: New dexAMETHasone [Hexadrol] 6 mg PO DAILY #21 tab Famotidine [Pepcid] 20 mg PO BID #60 tablet Ascorbic Acid [Vitamin C] 500 mg PO DAILY #30 tab.chew Cholecalciferol [Vitamin D3] 400 unit PO DAILY@1200 #30 tablet Continue Pregabalin [Lyrica] 100 mg PO TID Levothyroxine Sodium [Synthroid] 75 mcg PO DAILY Furosemide [Lasix] 20 mg PO DAILY Famotidine [Pepcid] 40 mg PO DAILY Aspirin EC [Ecotrin Low Dose] 81 mg PO HS tiZANidine HCL [Zanaflex] 2 mg PO HS ramipriL [Ramipril] 10 mg PO BID atenoloL [Atenolol] 25 mg PO DAILY Fexofenadine HCl [Maura Allergy] 180 mg PO HS Discharge Medication List Aspirin EC [Ecotrin Low Dose] 81 mg PO HS 06/18/20 [History] Famotidine [Pepcid] 40 mg PO DAILY 06/18/20 [History] Fexofenadine HCl [Maura Allergy] 180 mg PO HS 06/18/20 [History] Furosemide [Lasix] 20 mg PO DAILY 06/18/20 [History] Levothyroxine Sodium [Synthroid] 75 mcg PO DAILY 06/18/20 [History] Pregabalin [Lyrica] 100 mg PO TID 06/18/20 [History] atenoloL [Atenolol] 25 mg PO DAILY 06/18/20 [History] ramipriL [Ramipril] 10 mg PO BID 06/18/20 [History] tiZANidine HCL [Zanaflex] 2 mg PO HS 06/18/20 [History] Ascorbic Acid [Vitamin C] 500 mg PO DAILY #30 tab.chew 06/19/20 [Rx] Cholecalciferol [Vitamin D3] 400 unit PO DAILY@1200 #30 tablet 06/19/20 [Rx] Famotidine [Pepcid] 20 mg PO BID #60 tablet 06/19/20 [Rx] dexAMETHasone [Hexadrol] 6 mg PO DAILY #21 tab 06/19/20 [Rx] Follow up Appointment(s)/Referral(s): Damian Sherman MD [Primary Care Provider] - 1 Week Activity/Diet/Wound Care/Special Instructions: quarantine instructions
== END 2020-06-19 15:46 | disposition home or self-care (01) | DRG 177 ==
LOC: EC 09:26 → 6NMEDSUR 12:18
PROVIDERS: ADMIT Hospitalist; ATTEND Hospitalist
DX: U07.1 COVID-19 (principal); J12.82 Pneumonia due to coronavirus disease 2019; E66.9 Obesity, unspecified; I10 Essential (primary) hypertension; G89.29 Other chronic pain; E06.3 Autoimmune thyroiditis; M19.90 Unspecified osteoarthritis, unspecified site; M54.5 Low back pain; Z68.38 Body mass index [BMI] 38.0-38.9, adult; Z87.891 Personal history of nicotine dependence; Z79.899 Other long term (current) drug therapy; Z79.890 Hormone replacement therapy; Z88.0 Allergy status to penicillin; Z88.2 Allergy status to sulfonamides
CPT/HCPCS: 36415; 71045; 71275; 80053; 82728; 83605; 83615; 83735; 84145; 85025; 85379; 85610; 85730; 86140; 87040; 87635; 93005; 96361; 96374; 96375; 99291

== ENCOUNTER → 2022-05-17 | Outpatient (CLI) | payer MEDICARE ==
[2022-05-17 11:06] LABS: INR 0.9 (<1.2); Partial Thromboplastin Time 22.7 sec (22.0-30.0)
[2022-05-17 15:59] LABS: African American GFR (CKD) 98.2 (60.0-200.0); Albumin 4.2 g/dL (3.8-4.9); Albumin/Globulin Ratio 1.4 (1.60-3.17); Anion Gap 12.7 mmol/L (10.00-18.00); BUN/Creat Ratio 34.43 Ratio (12.00-20.00); Blood Urea Nitrogen 24.1 mg/dL (9.0-27.0); Calcium 9.3 mg/dL (8.7-10.3); Carbon Dioxide 22.3 mmol/L (20.0-27.5); Non-African American GFR(CKD) 84.8 (60.0-200.0); Potassium 4.3 mmol/L (3.5-5.5); Total Bilirubin 0.6 mg/dL (0.30-1.20); Total Protein 7.2 g/dL (6.2-8.2)
[2022-05-17 17:47] LABS: HCT 43.5 % (37.2-46.3); HGB 14.1 g/dL (12.0-15.0); MCH 31.1 pg (27.0-32.0); MCHC 32.4 g/dL (32.0-37.0); NRBC Per 100 WBC 0 /100 WBCS (0.0-0.0); Platelet Count 260 X 10*3/uL (140-440); RBC 4.53 X 10*6/uL (4.10-5.20); RDW 13.7 % (11.5-14.5); WBC 10.09 X 10*3/uL (4.50-10.00)
== END | disposition home or self-care (01) ==
LOC: LABPAT 08:59
PROVIDERS: ATTEND Orthopaedic Surgery
DX: Z01.812 Encounter for preprocedural laboratory examination (principal); M17.11 Unilateral primary osteoarthritis, right knee
CPT/HCPCS: 80053; 85027; 85610; 85730; 87070

== ENCOUNTER 2022-06-12 06:54 | Day surgery (SDC) | payer MEDICARE ==
[2022-06-07 10:56] VITALS: BMI 36.3
[~2022-06-12 06:54] MED LIST: ACETAMINOPHEN TAB 500 MG TAB PO PRN; DEXAMETHASONE SOD PHOSPHATE 4 MG/ML 1 ML VIAL IV ONE; GABAPENTIN 300 MG CAP PO PRN; MELOXICAM 7.5 MG TAB PO PRN; ONDANSETRON 4 MG/2 ML VIAL IVP ONE; TRANEXAMIC ACID IN NACL,ISO-OS 1,000 MG in SALINE 1 100ML.BAG IVPB PRN
[2022-06-12] MEDS ORDERED: LACTATED RINGERS 1,000 ML IV ONE ×2 (07:49→10:57)
[2022-06-12] MEDS ORDERED: DEXAMETHASONE SOD PHOSPHATE 4 MG/ML 1 ML VIAL IVP ONE (08:31)
[2022-06-12] MEDS ORDERED: ONDANSETRON 4 MG/2 ML VIAL IVP ONE (08:31)
[2022-06-12] MEDS ORDERED: MIDAZOLAM 2 MG/2 ML VIAL IVP ONE (08:38)
[2022-06-12] MEDS ORDERED: HYDROmorphone 0.5 MG/0.5 ML SYRINGE IVP PRN ×3 (09:12)
[2022-06-12] MEDS ORDERED: ONDANSETRON 4 MG/2 ML VIAL IVP PRN (09:12)
[2022-06-12] MEDS ORDERED: NALOXONE 0.4 MG/ML 1 ML VIAL IV PRN (09:12)
[2022-06-12] MEDS ORDERED: HYDROcodone/APAP 7.5-325MG 1 EACH TAB PO PRN (09:15)
[2022-06-12] MEDS ORDERED: ROPIVACAINE 0.2%-NS ON-Q PUMP 1,090 MG, EMPTY PAIN BALL 1 EACH MISCELLANE PRN (09:16)
--- NOTE | 2022-06-12 09:16 | P.ANPRN ---
Procedure Note - Anesthesia - Nerve Block Performed Right Adductor Canal Infusion Time Out Performed: Yes ([id number]) Date of Procedure: 06/12/22 Procedure Start Time: 08:37 Procedure Stop Time: 08:50 Location of Patient: PreOp Indication: Acute Post-Operative Pain, Dx/Pain Location (Right knee), Requested by Surgeon Specifically requested for management of pain by DrToy: Rainer Smith Sedation Type: Sedate with meaningful contact maintained Preparation: Sterile Prep, Sterile Dressing Position: Supine Catheter: Indwelling Needle Types: Pajunk Needle Gauge: 18 Ultrasound used to visualize needle placement: Yes Ultrasound used to observe medication spread: Yes Injectate: 0.5% Ropivacaine (see comment for volume) (20 cc + 4mg of Decadron) Blood Aspirated: No Pain Paresthesia on Injection Noted: No Resistance on Injection: Normal Image Stored and Saved: Yes Events: Uneventful and Well Tolerated Right iPack Single Time Out Performed: Yes Date of Procedure: 06/12/22 Procedure Start Time: 08:50 Procedure Stop Time: 08:55 Location of Patient: PreOp Indication: Acute Post-Operative Pain, Dx/Pain Location (Right knee), Requested by Surgeon Specifically requested for management of pain by DrToy: Rainer Smith Sedation Type: Sedate with meaningful contact maintained Preparation: Sterile Prep Position: Left Lateral Catheter: None Needle Types: Pajunk Needle Gauge: 18 (100 mm) Ultrasound used to visualize needle placement: Yes Ultrasound used to observe medication spread: Yes Injectate: 0.5% Ropivacaine (see comment for volume) (20 mL) Blood Aspirated: No Pain Paresthesia on Injection Noted: No Resistance on Injection: Normal Image Stored and Saved: Yes Events: Uneventful and Well Tolerated
[2022-06-12] MEDS ORDERED: LIDOCAINE 2% INJ 20 MG/ML (2 ML VIAL) ONE (09:19)
[2022-06-12] MEDS ORDERED: NEOSTIGMINE 1 MG/ML 10 ML VIAL ONE (09:19)
[2022-06-12] MEDS ORDERED: TRANEXAMIC ACID IN NACL,ISO-OS 1,000 MG/100 ML BAG ONE (09:19)
[2022-06-12] MEDS ORDERED: MIDAZOLAM 2 MG/2 ML VIAL ONE (09:19)
[2022-06-12] MEDS ORDERED: SUCCINYLCHOLINE CHLORIDE 200 MG/10 ML VIAL IV ONE (09:19)
[2022-06-12] MEDS ORDERED: ROPIVACAINE 5 MG/ML 30 ML VIAL ONE (09:19)
[2022-06-12] MEDS ORDERED: SODIUM CHLORIDE 0.9% (PF) 10 ML VIAL ONE (09:19)
[2022-06-12] MEDS ORDERED: GLYCOPYRROLATE 0.2 MG/ML 2 ML VIAL ONE (09:19)
[2022-06-12] MEDS ORDERED: PROPOFOL 10 MG/ML 20 ML VIAL IV ONE (09:19)
[2022-06-12] MEDS ORDERED: ROCURONIUM 10 MG/ML (5 ML VIAL) IV ONE (09:19)
[2022-06-12] MEDS ORDERED: ePHEDrine 50 MG/ML 1 ML VIAL ONE (09:19)
[2022-06-12] MEDS ORDERED: fentaNYL (PF) 50 MCG/ML 2 ML AMP ONE (09:19)
[2022-06-12] MEDS ORDERED: ceFAZolin 1,000 MG in SODIUM CHLORIDE 0.9% 1,000 ML IRRIGATION ONE (10:07)
--- NOTE | 2022-06-12 10:48 | P.OP ---
Date of Procedure: 06/12/22 Preoperative Diagnosis: Severe osteoarthritis right knee Postoperative Diagnosis: Severe osteoarthritis right knee Procedure(s) Performed: Right total knee arthroplasty Implants: [employer]hew Journey II CR Oxinium cruciate retaining femoral component size 3, right [employer] Journey nonporous tibial baseplate size 2, right [employer] Journey II, XLPE Deep Dished articular insert, size 9 mm, Size 1- 2, right [employer] Journey Francisca II resurfacing patellar component, oval, 29 mm All components were cemented using Palacos R bone cement The articulation is Oxinium on polyethylene Anesthesia: TREY Surgeon: Rainer Smith Sales Enablement Analyst #1: Alena Collins Estimated Blood Loss (ml): 30 Pathology: other (Bone and cartilage) Condition: stable Disposition: PACU Indications for Procedure: This is a 77-year-old female with a history of right knee osteoarthritis. The patient's knee is end-stage, and conservative management has failed. The operation of knee replacement has been discussed at length in the office, as well as potential risks and complications. These are inclusive of, but not limited to: Infection, bleeding, scarring, discomfort, stiffness, blood vessel and nerve damage, need for further surgery, failure to relieve symptoms, persistence, recurrence, or worsening of problems, loosening, dislocation, wear, blood clot, pulmonary embolism, , gait dysfunction, stiffness, and other risks as discussed in the office. Patient elects to proceed and the consent form has been signed. Operative Findings: The operative findings are consistent with severe osteoarthritis of the right knee Description of Procedure: Patient was seen in the preoperative area and the consent was reviewed and the operative site was marked with a skin marker. The patient verified the procedure and the operative site. An adductor canal pain catheter and an IPACK block were placed by anesthesia in the preoperative area. The patient was then brought to the operating room and positioned on the operating room table in the supine position. Preoperative antibiotics and a gram of transexamic acid were given intravenously. A general anesthetic was administered by the anesthesia department. Care was taken to make sure that all pressure points were adequately padded. A tourniquet was placed on the upper thigh and the lower extremity was prepped with ChloraPrep and draped in usual sterile fashion. A universal timeout was then performed which confirmed the patient's name, surgical site, ALLERGIES, and consent. The lower extremity was then exsanguinated and tourniquet was inflated to 250 mmHg. A standard anterior midline approach to the knee was performed. The skin and subcutaneous tissue were sharply dissected down to the patellar tendon. A medial parapatellar arthrotomy was then performed. The knee was then extended, the patellar was everted, and the knee was flexed. The infra-patellar fat pad was removed in order to enhance exposure. The anterior horns of both menisci were excised, and a release was performed to the posterior medial aspect of the knee. On gross visual inspection, there was complete loss of articular cartilage in the medial and patellofemoral joint spaces. There was also significant cartilage damage in the lateral compartment. There were multiple periarticular osteophytes globally about the knee which were then removed with a Ronguer. The femoral canal was then opened with the 9.5 mm intramedullary drill. The 8 mm intramedullary cat was then inserted into the femoral canal with the distal femoral cutting guide set for 5 of valgus. The distal femoral cutting block was then pinned in place. The intramedullary cat was then removed, and the distal femur was then cut. The cutting block was then removed and the cut was checked for symmetry. The resected bone was then measured to confirm the appropriate distal femoral resection. Next, the sizing guide was then placed and set for 3 external rotation based off of the epicondylar axis and Dickinson's line. Pins were then placed and the drill holes, and the femur was sized with the sizing stylus. The pins were then removed, and the sizing guide was then removed. The spikes of the appropriate size femoral block was then placed into the predrilled holes, and malleted into place. Two 45 mm pins were then placed into the fixation holes on the cutting block. An nelia wing was then used to ensure there would be no notching with the anterior cut. The anterior condyles were cut without notching. The anterior chord cut was then performed, followed by the posterior cut, posterior chamfer cut, and the anterior chamfer cut. The collateral ligaments were protected during the entire process. The cutting block was then removed. Any remaining bone and osteophytes were removed from the femur with a Ronguer. Attention was then directed to the tibia. The remaining ACL was removed with a Ronguer, and the tibia was then gently subluxed forward with a large bent knee retractor. Any remaining menisci were excised. The posterior lateral corner was cauterized in order to coagulate the lateral geniculate artery. The extra medullary tibial cutting guide was then placed, set for the appropriate rotation, slope, and depth of resection. The proximal tibia cutting guide was then pinned in place. Proximal tibia was then cut and sized. A curved osteotome was then used to remove any posterior osteophytes from the distal femur. The femoral trial was placed. A narrow saw blade was then used to remove the anterior intracondylar femoral bone. The CR notch trial was then placed. The tibial trial was placed with the appropriate-sized insert. The knee was able to fully extend and flex to 130 and was stable throughout all range of motion. The knee was then extended and the patella was everted. Patella was then measured, and then using an osteotomy guide, the patella was cut at the appropriate level. The patellar component was sized. The patellar drill guide was placed and the patella was drilled. The patella trial was then placed. The knee was then taken through range of motion with the patella trial and the patella tracked normally using the no thumbs technique. The patella trial was then removed. The knee was then flexed and lug holes were drilled through the femoral trial and the femoral trial was then removed. The tibial was then re- exposed, and the tibial broach guide was then pinned in place after it was set for the appropriate rotation to allow for the most coverage without overhang. The tibia was then reamed and broached. The femoral canal was plugged with autologous bone. The cut surfaces of bone were then irrigated with pulsatile lavage. The knee was also irrigated with I rrisept solution. The components were then opened, the cement was mixed. Cement was placed on the backside of the femoral, tibial, and patellar components. Cement was then applied to the tibial surface and pressurized into the surface using finger pressurization technique. The tibial component was then applied and excess cement was removed after it was impacted securely noted to be flush with the cut surface. In similar fashion, the cement was applied to the cut femoral surface, pressurized and using finger pressurization the component was impacted in place. Excess cement was removed. The polyethylene spacer was then implanted and locked into position. Patellar component was then applied in a similar technique and the patellar clamp was used to hold patella in place while the cement hardened. The knee was held in full extension while the cement hardened. Once the cement had fully hardened, the knee was reinspected. Any other cement extrusion was removed the final range of motion testing showed range of motion from 0-130 with excellent stability, both medial and laterally and appropriate alignment of the leg. Patella tracked normally[default value] After the cemented hardened, the tourniquet was released and hemostasis was obtained. A second gram of transexamic acid was given intravenously. The knee was again irrigated. The knee was again taken through range of motion and found to be stable throughout all range of motion of 0-130, and the patella tracked normally. The fascia was then closed with 0 Vicryl followed by #2 strata fix suture. The subcutaneous tissue was closed with 3-0 Vicryl and 3-0 strata fix. Exofin glue was used for the skin and placed with the knee in flexion. After the glue had dried, and Optafoam silver impregnated dressing was applied. A lightly compressive dressing was applied using web roll and Michael wrap. Patient was then transferred to the stretcher and taken to recovery room in stable condition. Sponge and needle counts were correct. The cafeteria assistant WALTER Beal was required due the complexity surgery and the need for a skilled surgical coordinator. She assisted in positioning, draping, retraction, and closure of the wound.
[2022-06-12] MEDS: HYDROmorphone 0.5 MG/0.5 ML SYRINGE IVP PRN ×3 (11:38→12:00)
--- NOTE | 2022-06-12 12:17 | XR ---
EXAMINATION TYPE: XR knee limited RT DATE OF EXAM: 06/12/2022 CLINICAL HISTORY: Right knee pain and arthritis status post total knee replacement. TECHNIQUE: Portable AP and crosstable lateral views of the right knee are obtained immediately posto peratively. COMPARISON: None FINDINGS: [place] osseous structures are demineralized. Metallic hardware from total right knee arthro plasty is seen and appears satisfactory in alignment and position. There is evidence of recent surge ry with diffuse subcutaneous gas and soft tissue swelling noted. Rounded calcific and ossific densiti es in the anterior medial soft tissue at level of proximal tibial metaphysis could reflect product of heterotopic ossification. IMPRESSION: METALLIC HARDWARE FROM TOTAL RIGHT KNEE ARTHROPLASTY IS SATISFACTORY IN ALIGNMENT.
[2022-06-12] MEDS: LACTATED RINGERS 1,000 ML IV SCH (15:46)
--- NOTE | 2022-06-12 18:06 | P.CONS ---
History of Present Illness - Reason for Consult Consult date: 06/12/22 Medical management Requesting physician: Rainer Smith - History of Present Illness History of Presenting Illness: Patient is a very pleasant 77 female with a past medical history of Leiden V clotting disorder on daily aspirin, hypertension, hypothyroidism, and osteoarthritis. She is currently admitted under orthopedic surgery team status post elective right total knee arthroplasty. We have been consulted for medical management of the patient's hospitalization. Patient seen and fully evaluated at bedside. She denies experiencing any postoperative nausea or vomiting and is tolerating oral intake on a regular full diet. She denies headache, lightheadedness, dizziness, chest pain, palpitations, shortness of breath, or experiencing any numbness/tingling/weakness in her extremity. Patient does report history of Leiden 5 clotting disorder but denies any history of blood clots stating that she has had phlebitis of her left leg but never diagnosed with a DVT or PE. Patient reports her mother did from a pulmonary emboli. Currently patient reports postoperative pain is managed and denies having any needs. Patient has yet to urinate and postoperative period, but states she has not tried as her family is at bedside visiting at this time. Review of systems: Pertinent positives and negatives as discussed in HPI, a complete review of systems was performed and all other systems are negative. Physical exam: Vital signs reviewed and stable. General: Nontoxic, no distress and appears stated age. Derm: Skin warm and dry, normal coloration for ethnicity. Head: Atraumatic, normocephalic and symmetric. Eyes: EOMs intact, no lid lag, and anicteric sclera Mouth: no lip lesions, mucus membranes moist Cardiovascular: regular rate and rhythm with normal S1S2, no murmur, positive posterior tibial pulses bilaterally, and cap refill < 2 seconds. Lungs: Respirations even, regular, and unlabored on room air. Lungs CTA bilaterally, no rhonchi, no rales, no wheezing, and no accessory muscle usage. Abdominal: soft, nontender to palpation, no guarding, no appreciable organomegaly Ext: ROM intact. No gross muscle atrophy, no edema, no contractures Neuro: Speech clear, face symmetrical and CN II-XII grossly intact with no noted focal neuro deficits Psych: Alert and oriented to person, place, time, and situation. Appropriate and pleasant affect. Assessment and Plan of Care: Status post right total knee arthroplasty -Management per primary admitting orthopedic surgery team including DVT prophylaxis, pain management, weightbearing, and PT/OT. -Patient currently with DVT prophylaxis with Xarelto -We will review CBC and BMP with morning labs. Leiden V clotting disorder -Patient manages with daily aspirin 81 mg. -At this time recommend continuation of daily antiplatelet therapy with aspirin along with DVT prophylaxis during postoperative period. Hypertension -Monitor vital signs and continue daily medication regimen with atenolol. Hypothyroidism -Continue daily medication regimen with levothyroxine. Thank you for allowing us to participate in the care of this pleasant patient. Do not hesitate to contact us with questions. Someone can be reached from the [facility] hospitalist group all hours of the day at [phone] or via [employer]. I reviewed the documentation as provided by the ANASTACIA above, who is the original author of this note. I agree with the documented assessment and plan, with the following changes: none Past Medical History Past Medical History: Hypertension, Osteoarthritis (OA), Thyroid Disorder Additional Past Medical History / Comment(s): chronic back pain, Hashimotos Thyroiditis, LEIDEN FACTOR 5 - PHLEBITIS IN LEFT LEG -PAST HISTORY, History of Any Multi-Drug Resistant Organisms: None Reported Past Surgical History: Back Surgery, Section, Hysterectomy Additional Past Surgical History / Comment(s): TOTAL LEFT HIP [employer]- A STIMULATOR IS NOT USING IT (IT HAS BEEN OFF FOR 4 YEARS ) ARTHROSCOPIC LEFT KNEE AND ARTHROPSCOPIC RIGHT KNEE, BACK SURGERY X4 Past Anesthesia/Blood Transfusion Reactions: No Reported Reaction Past Psychological History: No Psychological Hx Reported Additional Psychological History / Comment(s): TAKES CYMBALTA FOR THE NERVE PAIN IN FEET" Smoking Status: Former smoker Past Alcohol Use History: None Reported Additional Past Alcohol Use History / Comment(s): STARTED SMOKING AT AGE 20, QUIT AT AGE 38 SMOKED 1PPD Past Drug Use History: None Reported - Past Family History Mother Family Medical History: Deep Vein Thrombosis (DVT), Pulmonary Embolus Father Family Medical History: Cancer Additional Family Medical History / Comment(s): PROSTATE CANCER Medications and Allergies Home Medications Medication Instructions Recorded Confirmed Type Aspirin EC [Ecotrin Low Dose] 81 mg PO HS 06/18/20 06/12/22 History Famotidine [Pepcid] 40 mg PO DAILY 06/18/20 06/12/22 History Furosemide [Lasix] 20 mg PO DAILY 06/18/20 06/12/22 History Levothyroxine Sodium [Synthroid] 75 mcg PO DAILY 06/18/20 06/12/22 History Pregabalin [Lyrica] 100 mg PO TID 06/18/20 06/12/22 History atenoloL 25 mg PO DAILY 06/18/20 06/12/22 History ramipriL [Ramipril] 10 mg PO BID 06/18/20 06/12/22 History Ascorbic Acid [Vitamin C] 500 mg PO DAILY #30 tab.chew 06/19/20 06/12/22 Rx Cholecalciferol [Vitamin D3] 400 unit PO DAILY@1200 #30 tablet 06/19/20 06/12/22 Rx Aller-Zyr 10 mg PO DAILY 06/07/22 06/12/22 History DULoxetine HCL [Cymbalta] 60 mg PO DAILY 06/07/22 06/12/22 History Multivitamins, Thera [Multivitamin 1 tab PO DAILY 06/07/22 06/12/22 History (formulary)] Quercetin 1,000 mg PO DAILY 06/07/22 06/12/22 History Vitamin B Complex 1 each PO DAILY 06/07/22 06/12/22 History Zinc Gluconate [Zinc] 50 mg PO DAILY 06/07/22 06/12/22 History Ibuprofen 800 mg PO Q8H 06/08/22 06/12/22 History traMADol HCL 50 mg PO Q6H PRN 06/08/22 06/12/22 History HYDROcodone/APAP 7.5-325MG [[place] 1 - 2 tab PO Q6H PRN #32 tab 06/12/22 Rx 7.5-325] Ondansetron Odt [Zofran Odt] 1 tab PO Q8HR PRN #10 tab 06/12/22 Rx Rivaroxaban [Xarelto] 10 mg PO DAILY #12 tab 06/12/22 Rx Sennosides [Senokot] 2 tab PO DAILY PRN #60 tablet 06/12/22 Rx Allergies Allergy/AdvReac Type Severity Reaction Status Date / Time Penicillins Allergy RASH, Verified 06/12/22 08:23 SWELLING Sulfa (Sulfonamide Allergy Itching Verified 06/12/22 08:23 Antibiotics) Physical Exam Vitals: Vital Signs Temp Pulse Resp BP Pulse Ox 06/12/22 15:34 97.4 F L 68 15 116/74 91 L 06/12/22 14:00 71 16 128/75 94 L 06/12/22 13:35 70 16 131/66 94 L 06/12/22 13:05 70 16 123/83 94 L 06/12/22 12:43 71 16 132/80 95 06/12/22 12:28 67 16 111/83 94 L 06/12/22 12:15 71 16 138/72 92 L 06/12/22 12:00 73 16 133/69 97 06/12/22 11:45 68 16 150/71 96 06/12/22 11:30 78 16 154/71 100 06/12/22 11:16 97.4 F L 79 16 176/84 100 06/12/22 09:00 60 129/76 06/12/22 08:05 97.3 F L 68 16 111/60 95 Intake and Output 06/12/22 06/12/22 06/12/22 06:59 14:59 22:59 Intake Total 1851 480 Output Total 30 Balance 1821 480 Intake: IV 1851 Oral 480 Output: Estimated Blood Loss 30 Other: # Voids 1 Weight 95.9 kg 95.9 kg Results CBC & Chem 7: 06/13/22 04:41 06/13/22 04:41
[2022-06-12] MEDS: PREGABALIN 100 MG CAP PO SCH (20:01)
[2022-06-12] MEDS ORDERED: ASPIRIN 81 MG PO SCH (21:00)
[2022-06-12] MEDS ORDERED: SENNOSIDES-DOCUSATE SODIUM 1 EACH TAB PO SCH (21:00)
[2022-06-12] MEDS ORDERED: PREGABALIN 100 MG CAP PO SCH (22:00)
[2022-06-12] MEDS: HYDROcodone/APAP 7.5-325MG 1 EACH TAB PO PRN (22:43)
[2022-06-13] MEDS: HYDROcodone/APAP 7.5-325MG 1 EACH TAB PO PRN (04:34)
[2022-06-13] MEDS ORDERED: LEVOTHYROXINE 75 MCG TAB PO SCH (06:30)
[2022-06-13] MEDS: PREGABALIN 100 MG CAP PO SCH (06:57)
--- NOTE | 2022-06-13 07:34 | P.PN ---
Progress Note - Text Progress Note Date: 06/13/22 Postoperative day # 1 status post total knee arthroplasty, on adductor canal perineural catheter placed for postoperative analgesia. Ropivacaine 0.2% 8 mL per hour through ON-Q pump continuous infusion. Pain is well controlled. On visual analog scale 2/10 Patient is taking PRN oral pain medications. Catheter site: Looks Ok. There is no erythema or tenderness. Continue with the current pain management plan and will follow.
[2022-06-13] MEDS: LACTATED RINGERS 1,000 ML IV SCH (07:48)
[2022-06-13] MEDS: SODIUM CHLORIDE 0.9% 1,000 ML IV SCH (07:49)
[2022-06-13 08:07] VITALS: BP 128/67; PULSE 85; RESP 16; TEMP 97.7
--- NOTE | 2022-06-13 08:36 | P.DS ---
Providers Date of admission: 06/12/2021. Expected date of discharge: 06/13/22 Attending physician: Rainer Smith Consults: 06/12/22 16:47 Consult Physician Routine Consulting Provider: Malachi Lima Consult Reason/Comments: medical management Do you want consulting provider notified?: Yes Primary care physician: Damian Sherman - Discharge Diagnosis(es) (1) Primary localized osteoarthritis of right knee Current Visit: Yes Status: Acute (2) Status post total right knee replacement Current Visit: Yes Status: Acute Hospital Course: This is a 77-year-old female who was last seen with complaint of continued right knee pain. The patient has a known history of degenerative arthritis of the right knee and presents to discuss surgical options. After discussion and consideration the patient elects to proceed with total right knee arthroplasty. The patient is seen preoperatively by her primary care physician and cleared for surgery. The patient is admitted to [facility] for total right knee arthroplasty. The procedure was performed without complication or sequelae. Patient is doing well postoperatively. Vital signs are stable at discharge. Labs are stable at discharge. the patient is ambulating well with walker with minimal assistance. The patient is discharged to home on postop day #1 pending medical clearance. Please see orders and refer to the [facility] rec for accurate list of medications. Patient Condition at Discharge: Good Plan - Discharge Summary Discharge Rx Participant: No New Discharge Prescriptions: New HYDROcodone/APAP 7.5-325MG [[place] 7.5-325] 1 - 2 tab PO Q6H PRN #32 tab PRN Reason: Pain Sennosides [Senokot] 2 tab PO DAILY PRN #60 tablet PRN Reason: Constipation Rivaroxaban [Xarelto] 10 mg PO DAILY #12 tab Ondansetron Odt [Zofran Odt] 1 tab PO Q8HR PRN #10 tab PRN Reason: Nausea No Action Pregabalin [Lyrica] 100 mg PO TID Levothyroxine Sodium [Synthroid] 75 mcg PO DAILY Furosemide [Lasix] 20 mg PO DAILY Famotidine [Pepcid] 40 mg PO DAILY Aspirin EC [Ecotrin Low Dose] 81 mg PO HS ramipriL [Ramipril] 10 mg PO BID atenoloL 25 mg PO DAILY Ascorbic Acid [Vitamin C] 500 mg PO DAILY #30 tab.chew Cholecalciferol [Vitamin D3] 400 unit PO DAILY@1200 #30 tablet Vitamin B Complex 1 each PO DAILY Multivitamins, Thera [Multivitamin (formulary)] 1 tab PO DAILY Aller-Zyr 10 mg PO DAILY Ibuprofen 800 mg PO Q8H DULoxetine HCL [Cymbalta] 60 mg PO DAILY Zinc Gluconate [Zinc] 50 mg PO DAILY Quercetin 1,000 mg PO DAILY traMADol HCL 50 mg PO Q6H PRN PRN Reason: Pain Discharge Medication List Aspirin EC [Ecotrin Low Dose] 81 mg PO HS 06/18/20 [History] Famotidine [Pepcid] 40 mg PO DAILY 06/18/20 [History] Furosemide [Lasix] 20 mg PO DAILY 06/18/20 [History] Levothyroxine Sodium [Synthroid] 75 mcg PO DAILY 06/18/20 [History] Pregabalin [Lyrica] 100 mg PO TID 06/18/20 [History] atenoloL 25 mg PO DAILY 06/18/20 [History] ramipriL [Ramipril] 10 mg PO BID 06/18/20 [History] Ascorbic Acid [Vitamin C] 500 mg PO DAILY #30 tab.chew 06/19/20 [Rx] Cholecalciferol [Vitamin D3] 400 unit PO DAILY@1200 #30 tablet 06/19/20 [Rx] Aller-Zyr 10 mg PO DAILY 06/07/22 [History] DULoxetine HCL [Cymbalta] 60 mg PO DAILY 06/07/22 [History] Multivitamins, Thera [Multivitamin (formulary)] 1 tab PO DAILY 06/07/22 [History] Quercetin 1,000 mg PO DAILY 06/07/22 [History] Vitamin B Complex 1 each PO DAILY 06/07/22 [History] Zinc Gluconate [Zinc] 50 mg PO DAILY 06/07/22 [History] Ibuprofen 800 mg PO Q8H 06/08/22 [History] traMADol HCL 50 mg PO Q6H PRN 06/08/22 [History] HYDROcodone/APAP 7.5-325MG [[place] 7.5-325] 1 - 2 tab PO Q6H PRN #32 tab 06/12/22 [Rx] Ondansetron Odt [Zofran Odt] 1 tab PO Q8HR PRN #10 tab 06/12/22 [Rx] Rivaroxaban [Xarelto] 10 mg PO DAILY #12 tab 06/12/22 [Rx] Sennosides [Senokot] 2 tab PO DAILY PRN #60 tablet 06/12/22 [Rx] Follow up Appointment(s)/Referral(s): Rainer Smith DO [Doctor of Osteopathic Medicine] - 06/22/22 10:00 am Patient Instructions/Handouts: *Surgery [facility] - On-Q Pain Pump Discharge Instructions, *[facility] - (Anesthesia) Discharge Instructions Outpatient Surgery, How to Use an Incentive Spirometer (DC), Knee Replacement (DC) Activity/Diet/Wound Care/Special Instructions: Weightbearing as tolerated with walker. Leave dressing intact. Dressing may be removed by patient in 7 days. Then change dressing twice daily until follow up. May shower with initial dressing intact and after removal. If dressing become saturated, please remove. Please take Xarelto daily for 12 days postop. Recommend use of compression stockings daily until follow up to help prevent swelling and blood clots. May remove at night before sleeping. Please follow-up with [facility] 2 weeks and call with any questions or concerns, . Discharge Disposition: HOME WITH HOME HEALTH SERVICES
[2022-06-13 08:39] LABS: HGB 12.2 g/dL (12.0-15.0); MCHC 32.1 g/dL (32.0-37.0); MCV 93.6 fL (80.0-97.0); Mean Platelet Volume 9.3 fL (9.5-12.2); NRBC Per 100 WBC 0 /100 WBCS (0.0-0.0); Platelet Count 241 X 10*3/uL (140-440); RBC 4.06 X 10*6/uL (4.10-5.20); RDW 12.9 % (11.5-14.5); WBC 14.49 X 10*3/uL (4.50-10.00)
[2022-06-13 08:53] LABS: African American GFR (CKD) 83.6 (60.0-200.0); Anion Gap 11.1 mmol/L (10.00-18.00); BUN/Creat Ratio 24.75 Ratio (12.00-20.00); Blood Urea Nitrogen 19.8 mg/dL (9.0-27.0); Calcium 9.2 mg/dL (8.7-10.3); Carbon Dioxide 23.9 mmol/L (20.0-27.5); Non-African American GFR(CKD) 72.1 (60.0-200.0); Potassium 4.3 mmol/L (3.5-5.5)
[2022-06-13] MEDS ORDERED: ASCORBIC ACID 500 MG TAB PO SCH (09:00)
[2022-06-13] MEDS ORDERED: MULTIVITAMINS, THERA 1 EACH TAB PO SCH (09:00)
[2022-06-13] MEDS ORDERED: atenoloL 25 MG TAB PO SCH (09:00)
[2022-06-13] MEDS ORDERED: FAMOTIDINE 20 MG TAB PO SCH (09:00)
[2022-06-13] MEDS ORDERED: DULoxetine HCL 60 MG CAPSULE.DR PO SCH (09:00)
[2022-06-13] MEDS ORDERED: RIVAROXABAN 10 MG TAB PO SCH (09:00)
[2022-06-13] MEDS ORDERED: FUROSEMIDE 20 MG TAB PO SCH (09:00)
[2022-06-13] MEDS ORDERED: lisinopriL 20 MG TAB PO SCH (09:00)
[2022-06-13 11:59] LABS: Basophils # (A) 0.02 X 10*3/uL (0.00-0.10); Basophils % (A) 0.1 %; Eosinophils # (A) 0 X 10*3/uL (0.04-0.35); Eosinophils % (A) 0 %; Immature Grans, Automated 0.4 %; Lymphocytes # (A) 1.25 X 10*3/uL (0.90-5.00); Lymphocytes % (A) 8.6 %; Monocytes # (A) 1.67 X 10*3/uL (0.20-1.00); Monocytes % (A) 11.5 %; Neutrophils # (A) 11.49 X 10*3/uL (1.80-7.70); Neutrophils % (A) 79.4 %
[2022-06-13 12:00] LABS: RBC Morphology NORMAL
[2022-06-13] MEDS ORDERED: CHOLECALCIFEROL 10 MCG (400 IU) TABLET PO SCH (12:00)
--- NOTE | 2022-06-13 13:04 | P.PN ---
Subjective Progress Note Date: 06/13/22 Subjective: Patient seen and examined at bedside. No acute events overnight. She has minimal right knee. She denies any chest pain, shortness of breath, abdominal pain, nausea, vomiting, diarrhea, constipation, or urinary complaints. Pertinent positives and negatives as discussed above, a complete review of systems was performed and all other systems are negative. Vitals Signs Reviewed. General: nontoxic, no distress, appears at stated age Derm: warm, dry, right knee dressing with the pain catheter Head: atraumatic, normocephalic, symmetric Eyes: EOMI, no lid lag, anicteric sclera Mouth: no lip lesion, mucus membranes moist Cardiovascular: S1S2 reg, no murmur Lungs: CTA bilateral, no rhonchi, no rales , no accessory muscle use Abdominal: soft, nontender to palpation, no guarding, no appreciable organomegaly Ext: no gross muscle atrophy, bilateral 2+ pitting edema to ankles, no contractures Neuro: CN II-XI grossly intact, no focal neuro deficits Psych: Alert, oriented, appropriate affect Assessment and Plan: Status post right total knee arthroplasty -Management per primary admitting orthopedic surgery team including DVT prophylaxis, pain management, weightbearing, and PT/OT. -Patient currently with DVT prophylaxis with Xarelto -We will review CBC and BMP with morning labs. Leiden V clotting disorder -Patient manages with daily aspirin 81 mg, patient recommended to speak with primary care with regards to discontinuing it as it may not be effective Morbid obesity - Outpatient follow up Chronic medical problems: Hypertension Hypothyroidism Neuropathy - Continue home medications Patient medically optimized for discharge home Thank you for allowing us to participate in the care of this pleasant patient. Do not hesitate to contact us with questions. Someone can be reached from the [facility]Note 3[facility] hospitalist group all hours of the day at [phone] or via [employer]. Objective - Vital Signs Vital signs: Vital Signs Temp 97.7 F 06/13/22 07:09 Pulse 85 06/13/22 07:09 Resp 16 06/13/22 07:09 BP 128/67 06/13/22 07:09 Pulse Ox 96 06/13/22 07:09 FiO2 Intake & Output 06/12/22 06/13/22 06/13/22 18:59 06:59 18:59 Intake Total 2331 Output Total 30 Balance 2301 Weight 95.9 kg Intake: IV 1851 Oral 480 Output: Estimated Blood Loss 30 Other: # Voids 1 10 - Labs CBC & Chem 7: 06/13/22 04:41 06/13/22 04:41 Labs: Abnormal Lab Results - Last 24 Hours (Table) 06/13/22 06/13/22 Range/Units 04:41 04:41 WBC 14.49 H (4.50-10.00) X 10*3/uL RBC 4.06 L (4.10-5.20) X 10*6/uL Plt Count Comment A MPV 9.3 L (9.5-12.2) fL Immature Gran # 0.06 H (0.00-0.04) X 10*3/uL Neutrophils # 11.49 H (1.80-7.70) X 10*3/uL Monocytes # 1.67 H (0.20-1.00) X 10*3/uL Eosinophils # 0 L (0.04-0.35) X 10*3/uL Sodium 133 L (135-145) mmol/L BUN/Creatinine Ratio 24.75 H (12.00-20.00) Ratio
== END 2022-06-13 10:30 | disposition home health service (06) ==
LOC: OR 06:54 → 4SSUR 11:05 → OR 06-13 10:30
PROVIDERS: ATTEND Orthopaedic Surgery
DX: M17.11 Unilateral primary osteoarthritis, right knee (principal); I10 Essential (primary) hypertension; E03.9 Hypothyroidism, unspecified; F10.90 Alcohol use, unspecified, uncomplicated; G89.29 Other chronic pain; E06.3 Autoimmune thyroiditis; I80.3 Phlebitis and thrombophlebitis of lower extremities, unspecified; Z79.899 Other long term (current) drug therapy; Z98.890 Other specified postprocedural states; Z98.891 History of uterine scar from previous surgery; Z90.710 Acquired absence of both cervix and uterus; Z87.891 Personal history of nicotine dependence; Z79.82 Long term (current) use of aspirin; Z79.02 Long term (current) use of antithrombotics/antiplatelets; Z79.890 Hormone replacement therapy; Z82.49 Family history of ischemic heart disease and other diseases of the circulatory system; Z83.2 Family history of diseases of the blood and blood-forming organs and certain disorders involving the immune mechanism; Z80.42 Family history of malignant neoplasm of prostate
CPT/HCPCS: 27447; 97116; 97530; 97161; 64999; 64448; 76942; 80048; 85025; 88300; 73560; C1713; C1776; C1751; J2250; J0330; J1100; J2710; J0690 ×2; J2405; J3010; J2795 ×2; J2704; J1170; J2001

== ENCOUNTER → 2023-08-05 | Outpatient (CLI) | payer MEDICARE ==
[2023-08-05 08:54] LABS: INR 0.9 (<1.2); Partial Thromboplastin Time 25.6 sec (22.0-30.0); Prothrombin Time 10.3 sec (10.0-12.5)
[2023-08-05 15:41] LABS: ALT 19 U/L (8-44); AST 23 U/L (13-35); Albumin 4.1 g/dL (3.8-4.9); Albumin/Globulin Ratio 1.32 Ratio (1.60-3.17); Alkaline Phosphatase 83 U/L (41-126); BUN/Creat Ratio 28.33 Ratio (12.00-20.00); Calcium 9.3 mg/dL (8.7-10.3); Carbon Dioxide 25.4 mmol/L (21.6-31.8); Chloride 104 mmol/L (96-109); Globulin 3.1 g/dL (1.6-3.3); Glucose 96 mg/dL (70-110); Potassium 4.7 mmol/L (3.5-5.5); Sodium 139 mmol/L (135-145); Total Bilirubin 0.4 mg/dL (0.3-1.2); Total Protein 7.2 g/dL (6.2-8.2)
[2023-08-05 15:54] LABS: Basophils # (A) 0.08 X 10*3/uL (0.00-0.10); Basophils % (A) 0.9 %; Eosinophils # (A) 0.22 X 10*3/uL (0.04-0.35); Eosinophils % (A) 2.5 %; HCT 41.3 % (37.2-46.3); HGB 13.3 g/dL (12.0-15.0); Lymphocytes # (A) 1.73 X 10*3/uL (0.90-5.00); MCH 30.9 pg (27.0-32.0); MCHC 32.2 g/dL (32.0-37.0); MCV 95.8 FL (80.0-97.0); Mean Platelet Volume 10.4 FL (9.5-12.2); Monocytes # (A) 0.88 X 10*3/uL (0.20-1.00); Monocytes % (A) 10.2 %; NRBC Per 100 WBC 0 X 10*3/uL (0.00-0.01); Neutrophils # (A) 5.72 X 10*3/uL (1.80-7.70); Neutrophils % (A) 66.1 %; Platelet Count 243 X 10*3/uL (140-440); RBC 4.31 X 10*6/uL (4.10-5.20); RDW 13.1 % (11.5-14.5); WBC 8.66 X 10*3/uL (4.50-10.00)
== END | disposition home or self-care (01) ==
LOC: LABPAT 07:48
PROVIDERS: ATTEND Orthopaedic Surgery
DX: Z01.812 Encounter for preprocedural laboratory examination (principal); Z22.322 Carrier or suspected carrier of Methicillin resistant Staphylococcus aureus; M17.12 Unilateral primary osteoarthritis, left knee; I25.2 Old myocardial infarction; R94.31 Abnormal electrocardiogram [ECG] [EKG]
CPT/HCPCS: 36415; 80053; 85025; 85610; 85730; 87070; 93005

== ENCOUNTER 2023-08-19 05:38 | Day surgery (SDC) | payer MEDICARE ==
[2023-08-12 10:19] VITALS: BMI 39.3
[~2023-08-19 05:38] MED LIST changes: -ACETAMINOPHEN TAB 500 MG TAB PO PRN; -DEXAMETHASONE SOD PHOSPHATE 4 MG/ML 1 ML VIAL IV ONE; +HYDROmorphone 0.5 MG/0.5 ML SYRINGE IVP PRN; +LIDOCAINE 1% (10MG/ML) FOR IV START INTRADERMA PRN; -ONDANSETRON 4 MG/2 ML VIAL IVP ONE; +TRANEXAMIC 1,000 MG/100ML-NACL 1,000 MG in SALINE 1 100ML.BAG IVPB PRN; -TRANEXAMIC ACID IN NACL,ISO-OS 1,000 MG in SALINE 1 100ML.BAG IVPB PRN
[2023-08-19] MEDS: ONDANSETRON 4 MG/2 ML VIAL IVP ONE (06:40)
[2023-08-19] MEDS: DEXAMETHASONE SOD PHOSPHATE 4 MG/ML 1 ML VIAL IV ONE (06:40)
[2023-08-19] MEDS: ACETAMINOPHEN TAB 500 MG TAB PO PRN (06:40)
[2023-08-19] MEDS: MIDAZOLAM 2 MG/2 ML VIAL IV PRN (06:47)
[2023-08-19] MEDS ORDERED: NALOXONE 0.4 MG/ML 1 ML VIAL IV PRN (07:06)
[2023-08-19] MEDS ORDERED: HYDROmorphone 0.5 MG/0.5 ML SYRINGE IVP PRN ×3 (07:06)
[2023-08-19] MEDS ORDERED: ONDANSETRON 4 MG/2 ML VIAL IVP PRN (07:06)
[2023-08-19] MEDS ORDERED: TRANEXAMIC 1,000 MG/100ML-NACL PREMIX BAG ONE (07:07)
[2023-08-19] MEDS ORDERED: ROCURONIUM 10 MG/ML (5 ML VIAL) IV ONE (07:07)
[2023-08-19] MEDS ORDERED: HYDROcodone/APAP 7.5-325MG 1 EACH TAB PO PRN ×2 (07:07)
[2023-08-19] MEDS ORDERED: SUCCINYLCHOLINE CHLORIDE 200 MG/10 ML VIAL IV ONE (07:07)
[2023-08-19] MEDS ORDERED: ePHEDrine 50 MG/ML 1 ML VIAL ONE (07:07)
[2023-08-19] MEDS ORDERED: LIDOCAINE 1% INJ 10MG/ML (20 ML MDV) ONE (07:07)
[2023-08-19] MEDS ORDERED: SODIUM CHLORIDE 0.9% (PF) 10 ML VIAL ONE (07:07)
[2023-08-19] MEDS ORDERED: PROPOFOL 10 MG/ML 20 ML VIAL IV ONE (07:07)
[2023-08-19] MEDS ORDERED: PHENYLEPHRINE-0.9% NACL SYG 1,000 MCG/10 ML SYRINGE ONE (07:07)
[2023-08-19] MEDS ORDERED: NEOSTIGMINE 1 MG/ML 10 ML VIAL ONE (07:07)
[2023-08-19] MEDS ORDERED: GLYCOPYRROLATE 0.2 MG/ML 2 ML VIAL ONE (07:07)
[2023-08-19] MEDS ORDERED: fentaNYL (PF) 50 MCG/ML 2 ML AMP ONE (07:07)
[2023-08-19] MEDS ORDERED: ROPIVACAINE 5 MG/ML 30 ML VIAL ONE (07:07)
[2023-08-19] MEDS: ceFAZolin 1,000 MG in SODIUM CHLORIDE 0.9% 1,000 ML IRRIGATION ONE (07:12)
[2023-08-19] MEDS: LACTATED RINGERS 1,000 ML IV SCH (07:14)
[2023-08-19] MEDS ORDERED: SODIUM CHLORIDE 0.9% 1,000 ML IV SCH (07:15)
--- NOTE | 2023-08-19 07:49 | P.ANPRN ---
Procedure Note - Anesthesia - Nerve Block Performed Left Adductor Canal Infusion Time Out Performed: Yes (0646) Date of Procedure: 08/19/23 Procedure Start Time: 06:46 Procedure Stop Time: 07:05 Location of Patient: PreOp Indication: Acute Post-Operative Pain, Requested by Surgeon Sedation Type: Sedate with meaningful contact maintained Preparation: Sterile Prep, Sterile Dressing Position: Supine Catheter: Indwelling Needle Types: Pajunk Needle Gauge: 18 Ultrasound used to visualize needle placement: Yes Ultrasound used to observe medication spread: Yes Injectate: 0.5% Ropivacaine (see comment for volume) Blood Aspirated: No Pain Paresthesia on Injection Noted: No Resistance on Injection: Normal Image Stored and Saved: Yes Events: Uneventful and Well Tolerated (20 mL of block solution containing 10 ML of 0.5% ropivacaine mixed with 10 ML of preservative-free normal saline)
--- NOTE | 2023-08-19 07:51 | P.ANPRN ---
Procedure Note - Anesthesia - Nerve Block Performed Left iPack Single Time Out Performed: Yes (0646) Date of Procedure: 08/19/23 Procedure Start Time: 06:46 Procedure Stop Time: 07:05 Location of Patient: PreOp Indication: Acute Post-Operative Pain, Requested by Surgeon Sedation Type: Sedate with meaningful contact maintained Preparation: Sterile Prep Position: Supine Catheter: None Needle Types: Pajunk Needle Gauge: 21 Ultrasound used to visualize needle placement: Yes Ultrasound used to observe medication spread: Yes Injectate: 0.5% Ropivacaine (see comment for volume) Blood Aspirated: No Pain Paresthesia on Injection Noted: No Resistance on Injection: Normal Image Stored and Saved: Yes Events: Uneventful and Well Tolerated (20 mL of block solution containing 10 ML of 0.5% ropivacaine mixed with 10 ML of preservative-free normal saline)
--- NOTE | 2023-08-19 08:27 | P.OP ---
Date of Procedure: 08/19/23 Preoperative Diagnosis: Severe osteoarthritis left knee Postoperative Diagnosis: Severe osteoarthritis left knee Procedure(s) Performed: Left total knee arthroplasty Implants: [employer] II CR Oxinium cruciate retaining femoral component size 3, left [employer] nonporous tibial baseplate size 2, left [employer] II, XLPE Deep Dished articular insert, size 9 mm, Size 1- 2, left [employer] Francisca II resurfacing patellar component, oval, 29 mm All components were cemented using Palacos R bone cement The articulation is Oxinium on polyethylene Anesthesia: TREY Surgeon: Rainer Smith Tele Rn #1: Alena Clolins Estimated Blood Loss (ml): 40 Pathology: none sent Condition: stable Disposition: PACU Indications for Procedure: The patient's knee is end-stage, and conservative management has failed. The operation of knee replacement has been discussed at length in the office, as well as potential risks and complications. These are inclusive of, but not limited to: Infection, bleeding, scarring, discomfort, stiffness, blood vessel and nerve damage, need for further surgery, failure to relieve symptoms, persistence, recurrence, or worsening of problems, loosening, dislocation, wear, blood clot, pulmonary embolism, , gait dysfunction, stiffness, and other risks as discussed in the office. Patient elects to proceed and the consent form has been signed. Operative Findings: The operative findings are consistent with severe osteoarthritis of the left knee Description of Procedure: The patient was seen in the preoperative area, the consent was reviewed and the operative site was marked with a skin marker. The patient verified the procedure and the operative site. An adductor canal pain catheter and an iPACK block were placed by anesthesia in the preoperative area. The patient was then brought to the operating room and positioned on the operating room table in the supine position. Preoperative antibiotics and a gram of tranexamic acid were given intravenously. A general anesthetic was administered by the anesthesia department. Care was taken to make sure that all pressure points were adequately padded. A tourniquet was placed on the upper thigh and the lower extremity was prepped with ChloraPrep and draped in usual sterile fashion. A universal time-out was then performed which confirmed the patient's name, surgical site, ALLERGIES, and consent. The lower extremity was then exsanguinated and tourniquet was inflated to 250 mmHg. A standard anterior midline approach to the knee was performed. The skin and subcutaneous tissue were sharply dissected down to the patellar tendon. A medial parapatellar arthrotomy was then performed. The knee was then extended, the patellar was everted, and the knee was flexed. The infra-patellar fat pad was removed in order to enhance exposure. The anterior horns of both menisci were excised, and a release was performed to the posterior medial aspect of the knee. On gross visual inspection, there was complete loss of articular cartilage in the medial and patellofemoral joint spaces. There was also significant cartilage damage in the lateral compartment. There were multiple periarticular osteophytes globally about the knee which were then removed with a Ronguer. The femoral canal was then opened with the 9.5 mm intramedullary drill. The 8 mm intramedullary cat was then inserted into the femoral canal with the distal femoral cutting guide set for 5 of valgus. The distal femoral cutting block was then pinned in place. The intramedullary cat was then removed, and the distal femur was then cut. The cutting block was then removed and the cut was checked for symmetry. The resected bone was then measured to confirm the appropriate distal femoral resection. Next, the sizing guide was then placed and set for 3 external rotation based off of the epicondylar axis and [place]'s line. Pins were then placed and the drill holes, and the femur was sized with the sizing stylus. The pins were then removed, and the sizing guide was then removed. The spikes of the appropriate size femoral block was then placed into the predrilled holes, and malleted into place. Two 45 mm pins were then placed into the fixation holes on the cutting block. An nelia wing was then used to ensure there would be no notching with the anterior cut. The anterior condyles were cut without notching. The anterior chord cut was then performed, followed by the posterior cut, posterior chamfer cut, and the anterior chamfer cut. The collateral ligaments were protected during the entire process. The cutting block was then removed. Any remaining bone and osteophytes were removed from the femur with a Ronguer. Attention was then directed to the tibia. The remaining ACL was removed with a Ronguer, and the tibia was then gently subluxed forward with a large bent knee retractor. Any remaining menisci were excised. The posterior lateral corner was cauterized in order to coagulate the lateral geniculate artery. The extra medullary tibial cutting guide was then placed, set for the appropriate rotation, slope, and depth of resection. The proximal tibia cutting guide was then pinned in place. Proximal tibia was then cut and sized. A curved osteotome was then used to remove any posterior osteophytes from the distal femur. The femoral trial was placed. A narrow saw blade was then used to remove the anterior intracondylar femoral bone. The CR notch trial was then placed. The tibial trial was placed with the appropriate-sized insert. The knee was able to fully extend and flex to 130 and was stable throughout all range of motion. The knee was then extended and the patella was everted. Patella was then measured, and then using an osteotomy guide, the patella was cut at the appropriate level. The patellar component was sized. The patellar drill guide was placed and the patella was drilled. The patella trial was then placed. The knee was then taken through range of motion with the patella trial and the patella tracked normally using the no thumbs technique. The patella trial was then removed. The knee was then flexed and lug holes were drilled through the femoral trial and the femoral trial was then removed. The tibial was then re- exposed, and the tibial broach guide was then pinned in place after it was set for the appropriate rotation to allow for the most coverage without overhang. The tibia was then reamed and broached. The femoral canal was plugged with autologous bone. The cut surfaces of bone were then irrigated with pulsatile lavage. The knee was also irrigated with Irrisept solution. The components were then opened, the cement was mixed. Cement was placed on the backside of the femoral, tibial, and patellar components. Cement was then applied to the tibial surface and pressurized into the surface using finger pressurization technique. The tibial component was then applied and excess cement was removed after it was impacted securely noted to be flush with the cut surface. In similar fashion, the cement was applied to the cut femoral surface, pressuriz ed and using finger pressurization the component was impacted in place. Excess cement was removed. The polyethylene spacer was then implanted and locked into position. Patellar component was then applied in a similar technique and the patellar clamp was used to hold patella in place while the cement hardened. The knee was held in full extension while the cement hardened. Once the cement had fully hardened, the knee was reinspected. Any other cement extrusion was removed the final range of motion testing showed range of motion from 0-130 with excellent stability, both medial and laterally and appropriate alignment of the leg. Patella tracked normally. After the cemented hardened, the tourniquet was released and hemostasis was obtained. A second gram of transexamic acid was given intravenously. The knee was again irrigated. The knee was again taken through range of motion and found to be stable throughout all range of motion of 0-130, and the patella tracked normally. The fascia was then closed with 0 Vicryl followed by #2 strata fix suture. The subcutaneous tissue was closed with 3-0 Vicryl and 3-0 strata fix. Exofin glue was used for the skin and placed with the knee in flexion. After the glue had dried, and Optafoam silver impregnated dressing was applied. A lightly compressive dressing was applied using web roll and Michael wrap. Patient was then transferred to the stretcher and taken to recovery room in stable condition. Sponge and needle counts were correct. The speech therapy assistant WALTER Beal was required due the complexity surgery and the need for a skilled cardiovascular surgical tech. She assisted in positioning, draping, retraction, and closure of the wound.
[2023-08-19] MEDS: ROPIVACAINE 1,100 MG, SODIUM CHLORIDE 0.9% 500 ML 330 ML, EMPTY PAIN BALL 1 EACH MISCELLANE PRN (09:17)
[2023-08-19 09:25] VITALS: TEMP 97
[2023-08-19] MEDS: HYDROmorphone 0.5 MG/0.5 ML SYRINGE IVP ONE ×2 (09:39→09:47)
--- NOTE | 2023-08-19 09:44 | XR ---
EXAMINATION TYPE: XR knee limited LT DATE OF EXAM: 08/19/2023 9:36 AM CLINICAL INDICATION:Female, 78 years old with history of Evaluation for Postop abnormality and alignm ent; [facility] COMPARISON: None. TECHNIQUE: XR knee limited LT; examined in Frontal, lateral and oblique projections. FINDINGS: Status post total knee arthroplasty changes with hardware in appropriate alignment and in tact. No evidence of fracture. Subcutaneous lucencies and lucencies within the joint consistent with surgical changes. IMPRESSION: Status post total knee arthroplasty changes with hardware intact and appropriate alignment. No fractu res identified.
[2023-08-19] MEDS: HYDROcodone/APAP 7.5-325MG 1 EACH TAB PO ONE (10:53)
[2023-08-19 11:11] VITALS: RESP 16
[2023-08-19 12:56] VITALS: BP 128/86; PULSE 76
== END 2023-08-19 13:22 | disposition home or self-care (01) ==
LOC: OR 05:38
PROVIDERS: ATTEND Orthopaedic Surgery
DX: M17.12 Unilateral primary osteoarthritis, left knee (principal); M21.162 Varus deformity, not elsewhere classified, left knee; I10 Essential (primary) hypertension; E03.9 Hypothyroidism, unspecified; G62.9 Polyneuropathy, unspecified; D68.2 Hereditary deficiency of other clotting factors; F10.90 Alcohol use, unspecified, uncomplicated; Z79.82 Long term (current) use of aspirin; Z79.890 Hormone replacement therapy; Z79.899 Other long term (current) drug therapy; Z87.891 Personal history of nicotine dependence; Z88.2 Allergy status to sulfonamides; Z88.0 Allergy status to penicillin; Z88.8 Allergy status to other drugs, medicaments and biological substances; Z79.1 Long term (current) use of non-steroidal anti-inflammatories (NSAID)
CPT/HCPCS: 97110; 97161; 64999; 64448; 73560; 27447; C1713; C1776; C1751; J2250; J0330; J1100; J2710; J0690 ×2; J2405; J2001; J3010; J2795; J2704; J1170; J2371